=== PATIENT | female | born 1965 | race Caucasian/White ===

== ENCOUNTER 2017-11-21 06:06 | Observation (INO) ==
--- NOTE | 2017-11-21 06:16 | Emergency Department Note ---
Disposition Clinical Impression: TIA (transient ischemic attack), Troponin level elevated Disposition: Admitted As Inpatient Condition: Good General Adult HPI - General Stated complaint: Stroke like symptoms/ Hx stroke in May Time Seen by Provider: 11/21/17 06:09 - Related Data Home Medications Medication Instructions Recorded Confirmed FLUoxetine HCl [Prozac] 40 mg PO DAILY 11/21/17 11/21/17 LevETIRAcetam [Keppra] 750 mg PO BID 11/21/17 11/21/17 Rosuvastatin Calcium [Crestor] 10 mg PO HS 11/21/17 11/21/17 metFORMIN [Glucophage] 500 mg PO DAILY 11/21/17 11/21/17 Allergies Allergy/AdvReac Type Severity Reaction Status Date / Time ampicillin Allergy Rash Verified 05/08/17 11:21 Past Medical History - Past Medical History Medical history: Reports: diabetes, hypertension Psychiatric history: Reports: anxiety, depression - Social History Smoking Status: Current every day smoker Smokeless Tobacco Status: No Alcohol use: Reports: none Drug use: Reports: none Course Vital Signs Temperature 97.8 F 11/21/17 06:11 Pulse Rate 96 11/21/17 06:11 Respiratory Rate 18 11/21/17 06:11 Blood Pressure 148/102 11/21/17 06:11 O2 Sat by Pulse Oximetry 98 11/21/17 06:11 Temperature 98.0 F 11/22/17 11:38 Pulse Rate 77 11/22/17 11:38 Respiratory Rate 15 11/22/17 11:38 Blood Pressure 111/73 11/22/17 11:38 O2 Sat by Pulse Oximetry 97 11/22/17 11:38 Oxygen Delivery Oxygen Delivery Room Air Medical Decision Making - Lab Data Result diagrams: 11/21/17 06:20 11/21/17 06:20 Lab Results 11/21/17 11/21/17 11/21/17 Range/Units 06:12 06:20 06:20 WBC 10.1 (4.3-11.1) K/mcL RBC 4.54 (3.82-4.97) M/mcL Hgb 13.5 (11.5-15.4) g/dL Hct 40.8 (35.3-44.9) % MCV 89.9 (83.0-100.0) fL MCH 29.7 (28.0-33.3) pg MCHC 33.1 (31.6-35.5) g/dL RDW 12.7 (11.5-14.5) % Plt Count 287 (140-400) K/mcL MPV 10.5 (9.4-12.4) fL Immature Gran % 0.5 (0-4) % Seg Neutrophils % 70.3 % Lymphocytes % 20.1 % Monocytes % 6.8 % Eosinophils % 1.8 % Basophils % 0.5 % Neutrophils # 7.1 (1.6-8.9) K/mcL Lymphocytes # 2.0 (0.6-4.6) K/mcL Monocytes # 0.7 (0.0-1.3) K/mcL Eosinophils # 0.2 (0.0-0.6) K/mcL Basophils # 0.1 (0.0-0.2) K/mcL PT 11.6 (9.4-12.1) Seconds INR 1.0 Sodium (136-145) mEq/L Potassium (3.5-5.1) mEq/L Chloride (98-107) mEq/L Carbon Dioxide (23-29) mEq/L BUN (6-20) mg/dL Creatinine (0.60-1.20) mg/dL Est GFR ( Amer) (> 60) Est GFR (Non-Af Amer) (> 60) BUN/Creatinine Ratio (6-26) Glucose (70-105) mg/dL POC Glucose 133 H (70-99) mg/dL Calculated Osmolality (280-300) Calcium (8.6-10.3) mg/dL Total Bilirubin (0.3-1.0) mg/dL AST (13-39) Units/L ALT (7-52) Units/L Alkaline Phosphatase (34-104) Units/L Troponin I (< 0.04) ng/mL Serum Total Protein (6.4-8.9) g/dL Albumin (3.5-5.7) g/dL Globulin (2.4-3.5) g/dL Albumin/Globulin Ratio (1.1-2.2) 11/21/17 11/21/17 Range/Units 06:20 07:56 WBC (4.3-11.1) K/mcL RBC (3.82-4.97) M/mcL Hgb (11.5-15.4) g/dL Hct (35.3-44.9) % MCV (83.0-100.0) fL MCH (28.0-33.3) pg MCHC (31.6-35.5) g/dL RDW (11.5-14.5) % Plt Count (140-400) K/mcL MPV (9.4-12.4) fL Immature Gran % (0-4) % Seg Neutrophils % % Lymphocytes % % Monocytes % % Eosinophils % % Basophils % % Neutrophils # (1.6-8.9) K/mcL Lymphocytes # (0.6-4.6) K/mcL Monocytes # (0.0-1.3) K/mcL Eosinophils # (0.0-0.6) K/mcL Basophils # (0.0-0.2) K/mcL PT (9.4-12.1) Seconds INR Sodium 138 (136-145) mEq/L Potassium 4.0 (3.5-5.1) mEq/L Chloride 106 (98-107) mEq/L Carbon Dioxide 23 (23-29) mEq/L BUN 22 H (6-20) mg/dL Creatinine 0.75 (0.60-1.20) mg/dL Est GFR ( Amer) > 60 (> 60) Est GFR (Non-Af Amer) > 60 (> 60) BUN/Creatinine Ratio 29 H (6-26) Glucose 136 H (70-105) mg/dL POC Glucose (70-99) mg/dL Calculated Osmolality 291 (280-300) Calcium 9.4 (8.6-10.3) mg/dL Total Bilirubin 0.3 (0.3-1.0) mg/dL AST 18 (13-39) Units/L ALT 23 (7-52) Units/L Alkaline Phosphatase 79 (34-104) Units/L Troponin I 0.14 H* 0.20 H* (< 0.04) ng/mL Serum Total Protein 7.7 (6.4-8.9) g/dL Albumin 4.5 (3.5-5.7) g/dL Globulin 3.2 (2.4-3.5) g/dL Albumin/Globulin Ratio 1.4 (1.1-2.2) Attestation Statement - Attestation Attestation: I examined this patient and my medical decision-making was reviewed with the Resident Physician. I agree with the documented findings, disposition and treatment plan as described except to the extent set forth below. Findings consistent with dysarthria which is now improving. Symptom onset was last night before midnight. She is out of the window for any intervention and actually recently had brain surgery for hemorrhagic stroke. We will obtain advanced imaging of the brain as well as laboratory analyses and proceed with admission for medical maximization. Disposition will be pending results of advanced imaging.
[2017-11-21] MEDS ORDERED: Isovue-370 500 ML INFUS..BTL IV ONE (06:19)
--- NOTE | 2017-11-21 06:30 | Emergency Department Note ---
Disposition Clinical Impression: TIA (transient ischemic attack), Troponin level elevated Disposition: Admitted As Inpatient Condition: Fair General Adult HPI - General Chief complaint: ED Neuro Symptoms/Deficit Stated complaint: Stroke like symptoms/ Hx stroke in May Time Seen by Provider: 11/21/17 06:09 Source: patient Limitations: no limitations Nursing Notes Reviewed: Yes Vital Signs Reviewed: Yes - History of Present Illness HPI Narrative: 51 year old female with history of stroke presents with blur speech since three hours ago. Pt woke up around 3 am with blur speech. She then fell in sleep and hopped the symptoms would go away. She woke up around 5 am again. She talked with her boyfriend in the phone and found out that she still had blur speech. Pt stated she had mild chest uncomfortable in left side chest at the same time. No shortness of breath. Pt is not sure whether she had seizure. Pt reported no chest pain and mild improving blur speech when arriving at ER. Denied headache. Denied weakness of extremities. Pt reported intracranial hemorrhage with midline shift in May in [place]. She follows up with Dr. Coto. Pt is not on any blood thinner. Pt is on Levetiracetam to prevent seizure. No witnessed seizures in the past. Onset (ago): hour(s) (3) Location: head Radiation: non-radiation Pain Scale: 6 Consistency: constant - Related Data Allergies Allergy/AdvReac Type Severity Reaction Status Date / Time ampicillin Allergy Rash Verified 05/08/17 11:21 Constitutional: Denies: fever, chills, weakness, weight change Eyes: Denies: eye pain, eye discharge, vision change ENT ED: Reports: other (blur speech ). Denies: ear pain, throat pain, dental pain, hearing loss, epistaxis, congestion, dysphagia Cardiovascular: Reports: chest pain. Denies: palpitations, dyspnea on exertion , edema, syncope Respiratory: Denies: cough, dyspnea, wheezes, hemoptysis, stridor Gastrointestinal: Denies: abdominal pain, nausea, vomiting, diarrhea, constipation, hematemesis, melena, hematochezia Genitourinary: Denies: dysuria, frequency, hematuria, discharge Musculoskeletal: Denies: back pain, neck pain, arthralgia, myalgia Integumentary: Denies: rash, abrasion, lesions Neurological: Denies: headache, weakness, numbness, paresthesias, confusion, abnormal gait, vertigo Psychiatric: Denies: anxiety, depression, suicidal thoughts, homicidal thoughts , auditory hallucinations, visual hallucinations Endocrine: Denies: fatigue Hematological/Lymphatic: Denies: easy bleeding, easy bruising Allergic/Immunologic: Denies: facial swelling, urticaria Past Medical History - Past Medical History Medical history: Reports: diabetes, hypertension Psychiatric history: Reports: anxiety, depression - Social History Smoking Status: Current every day smoker Smokeless Tobacco Status: No Alcohol use: Reports: none Drug use: Reports: none Physical Exam - General Limitations: no limitations General appearance: alert, in no apparent distress - Head Head exam: atraumatic, normocephalic, normal inspection - Eye Eye exam: Present: normal appearance, PERRL, EOMI - ENT ENT exam: normal oropharynx, mucous membranes moist, other (a small lesion in right side tongue) - Neck Neck exam: Present: normal inspection, full ROM, trachea midline - Chest Chest inspection: Present: normal inspection, symmetric chest wall rise - Respiratory Respiratory exam: Present: normal lung sounds bilaterally - Cardiovascular Cardiovascular exam: Present: regular rate, normal rhythm, normal heart sounds - Abdominal Exam Abdominal exam: Present: soft, Non-Tender. Absent: tenderness, distention, guarding, rebound, rigidity - Extremities Exam Extremities exam: Present: normal inspection, full ROM. Absent: tenderness, pedal edema - Back Exam Back exam: Present: normal inspection, full ROM. Absent: tenderness - Neurological Exam Neurological exam: Present: alert, oriented X3, CN II-XII intact. Absent: motor sensory deficit - Psychiatric Psychiatric exam: Present: normal affect, normal mood - Skin Skin exam: Present: warm, dry, intact, normal color Course Vital Signs Temperature 97.8 F 11/21/17 06:11 Pulse Rate 96 11/21/17 06:11 Respiratory Rate 18 11/21/17 06:11 Blood Pressure 148/102 11/21/17 06:11 O2 Sat by Pulse Oximetry 98 11/21/17 06:11 Temperature 97.8 F 11/21/17 06:11 Pulse Rate 96 11/21/17 06:11 Respiratory Rate 18 11/21/17 06:11 Blood Pressure 148/102 11/21/17 06:11 O2 Sat by Pulse Oximetry 98 11/21/17 06:11 Oxygen Delivery Oxygen Delivery Room Air Medical Decision Making - MDM Narrative Medical decision making narrative: 51 year old female with history of intracranial hemorrhage presents with blur speech and chest pain since this morning. Pt has improved blur speech and resolved chest pain at ER. Physical exam: mild lesion in right side tongue, no other focal neurology deficit. EKG: no ST-T change. Labs: elevated troponin 0.14. Head CT: no bleeding noted. Concerning TIA, NM and questionable seizure. Pt will be admitted to hospital with cardiology and neurology consults. Dr. Hamilton saw the patient and agrees the above plan. 07:40 spoke with oncall Cardiology Dr. Tenorio. He suggested to give Aspirin, repeat Troponin. If the second troponin positive, heparin trip should be started. He will see the patient in the floor. 08:[address] Coto. He suggested to odder MRI brain. He will see the patient in the floor. 08:12 spoke with hospitalist, pt is accepted. - Lab Data Lab results reviewed: Yes I reviewed the patient's lab results. Result diagrams: 11/21/17 06:20 11/21/17 06:20 Lab Results 11/21/17 11/21/17 11/21/17 Range/Units 06:12 06:20 06:20 WBC 10.1 (4.3-11.1) K/mcL RBC 4.54 (3.82-4.97) M/mcL Hgb 13.5 (11.5-15.4) g/dL Hct 40.8 (35.3-44.9) % MCV 89.9 (83.0-100.0) fL MCH 29.7 (28.0-33.3) pg MCHC 33.1 (31.6-35.5) g/dL RDW 12.7 (11.5-14.5) % Plt Count 287 (140-400) K/mcL MPV 10.5 (9.4-12.4) fL Immature Gran % 0.5 (0-4) % Seg Neutrophils % 70.3 % Lymphocytes % 20.1 % Monocytes % 6.8 % Eosinophils % 1.8 % Basophils % 0.5 % Neutrophils # 7.1 (1.6-8.9) K/mcL Lymphocytes # 2.0 (0.6-4.6) K/mcL Monocytes # 0.7 (0.0-1.3) K/mcL Eosinophils # 0.2 (0.0-0.6) K/mcL Basophils # 0.1 (0.0-0.2) K/mcL PT 11.6 (9.4-12.1) Seconds INR 1.0 Sodium (136-145) mEq/L Potassium (3.5-5.1) mEq/L Chloride (98-107) mEq/L Carbon Dioxide (23-29) mEq/L BUN (6-20) mg/dL Creatinine (0.60-1.20) mg/dL Est GFR ( Amer) (> 60) Est GFR (Non-Af Amer) (> 60) BUN/Creatinine Ratio (6-26) Glucose (70-105) mg/dL POC Glucose 133 H (70-99) mg/dL Calculated Osmolality (280-300) Calcium (8.6-10.3) mg/dL Total Bilirubin (0.3-1.0) mg/dL AST (13-39) Units/L ALT (7-52) Units/L Alkaline Phosphatase (34-104) Units/L Troponin I (< 0.04) ng/mL Serum Total Protein (6.4-8.9) g/dL Albumin (3.5-5.7) g/dL Globulin (2.4-3.5) g/dL Albumin/Globulin Ratio (1.1-2.2) 11/21/17 Range/Units 06:20 WBC (4.3-11.1) K/mcL RBC (3.82-4.97) M/mcL Hgb (11.5-15.4) g/dL Hct (35.3-44.9) % MCV (83.0-100.0) fL MCH (28.0-33.3) pg MCHC (31.6-35.5) g/dL RDW (11.5-14.5) % Plt Count (140-400) K/mcL MPV (9.4-12.4) fL Immature Gran % (0-4) % Seg Neutrophils % % Lymphocytes % % Monocytes % % Eosinophils % % Basophils % % Neutrophils # (1.6-8.9) K/mcL Lymphocytes # (0.6-4.6) K/mcL Monocytes # (0.0-1.3) K/mcL Eosinophils # (0.0-0.6) K/mcL Basophils # (0.0-0.2) K/mcL PT (9.4-12.1) Seconds INR Sodium 138 (136-145) mEq/L Potassium 4.0 (3.5-5.1) mEq/L Chloride 106 (98-107) mEq/L Carbon Dioxide 23 (23-29) mEq/L BUN 22 H (6-20) mg/dL Creatinine 0.75 (0.60-1.20) mg/dL Est GFR ( Amer) > 60 (> 60) Est GFR (Non-Af Amer) > 60 (> 60) BUN/Creatinine Ratio 29 H (6-26) Glucose 136 H (70-105) mg/dL POC Glucose (70-99) mg/dL Calculated Osmolality 291 (280-300) Calcium 9.4 (8.6-10.3) mg/dL Total Bilirubin 0.3 (0.3-1.0) mg/dL AST 18 (13-39) Units/L ALT 23 (7-52) Units/L Alkaline Phosphatase 79 (34-104) Units/L Troponin I 0.14 H* (< 0.04) ng/mL Serum Total Protein 7.7 (6.4-8.9) g/dL Albumin 4.5 (3.5-5.7) g/dL Globulin 3.2 (2.4-3.5) g/dL Albumin/Globulin Ratio 1.4 (1.1-2.2) - Radiology Data Radiology results reviewed: Yes I reviewed the patient's radiology results. - EKG Data EKG #1 EKG attestation: Yes I reviewed and interpreted this EKG. EKG results narrative: no st-t change EKG shows normal: sinus rhythm Rate: normal
[2017-11-21 06:34] LABS: Basophils # 0.1 K/mcL (0.0-0.2); Basophils % 0.5 %; Eosinophils # 0.2 K/mcL (0.0-0.6); Eosinophils % 1.8 %; Hematocrit 40.8 % (35.3-44.9); Hemoglobin 13.5 g/dL (11.5-15.4); Immature Granulocytes % 0.5 % (0-4); Lymphocytes % 20.1 %; Mean Corpuscular HGB Conc 33.1 g/dL (31.6-35.5); Mean Corpuscular Hemoglobin 29.7 pg (28.0-33.3); Mean Corpuscular Volume 89.9 fL (83.0-100.0); Mean Platelet Volume 10.5 fL (9.4-12.4); Monocytes # 0.7 K/mcL (0.0-1.3); Monocytes % 6.8 %; Neutrophils # 7.1 K/mcL (1.6-8.9); Platelet Count 287 K/mcL (140-400); Red Blood Count 4.54 M/mcL (3.82-4.97); Red Cell Distribution Width 12.7 % (11.5-14.5); Segmented Neutrophils % 70.3 %
[2017-11-21 06:40] LABS: Prothrombin Time 11.6 Seconds (9.4-12.1)
[2017-11-21 06:53] LABS: Alanine Aminotransferase 23 Units/L (7-52); Albumin 4.5 g/dL (3.5-5.7); Albumin/Globulin Ratio 1.4 (1.1-2.2); Alkaline Phosphatase 79 Units/L (34-104); Aspartate Amino Transferase 18 Units/L (13-39); BUN/Creatinine Ratio 29 (6-26); Bilirubin,Total 0.3 mg/dL (0.3-1.0); Blood Urea Nitrogen 22 mg/dL (6-20); Calcium 9.4 mg/dL (8.6-10.3); Carbon Dioxide 23 mEq/L (23-29); Chloride 106 mEq/L (98-107); Globulin 3.2 g/dL (2.4-3.5); Glucose 136 mg/dL (70-105); Osmolality,Calculated 291 (280-300); Sodium 138 mEq/L (136-145); Total Protein 7.7 g/dL (6.4-8.9); eGFR For Non-African Americans > 60 (> 60)
[2017-11-21 07:09] LABS: Troponin I 0.14 ng/mL (< 0.04)
[2017-11-21] MEDS ORDERED: Aspirin 325 MG TABLET PO ONE (07:45)
--- NOTE | 2017-11-21 09:27 | Internal Med History&Physical ---
Date of Encounter: 11/21/17 Time of Encounter: 09:25 Internal Medicine - H&P: HPI Chief complaint: blurry speech and chest pain Admitted From: Home Plans for Post Hospital Care: Home History of present illness: Ms. Vickers is a 51 year old female with past medical history of borderline diabetes, sleep apnea on CPAP, intracranial bleeding in May status post surgery came in with complain of blurry speech and chest pain. Patient when woken up by phone call around 3:00 this morning noticed that her speech was slurry and she difficulty speaking. She went to sleep thinking resolve on its own. She woke up around 5:00 feeling weak throughout her body. Her stay blurry speech was resolved however she started having some chest discomfort about 2 x 10 in intensity with pressure-like symptoms in the center of her chest. Nonradiating and nonexertional. Patient came to be around 6:30. She denied any previous history of chest pain. Denies any previous cardiac problems. Denies nausea, vomiting, headache, palpitation or lightheadedness. Denies any back pain abdominal pain bowel or urinary complaints. She was noted to have bruised tongue and some soreness in the ER patient concerns of seizure which date she did not recall. She is on Keppra for seizure prevention since her intracranial hemorrhage. She has not had any seizure in past. Patient CT head was negative. Was noted to have elevated troponin and unremarkable EKG. Patient was admitted for chest pain possible stroke or seizure. Past Med Surg Social Fam HX - Past Medical History Medical history: diabetes, hypertension Psychiatric history: anxiety, depression - Past Surgical History Additional surgical history: brain surgery - Social History Smoking Status: Current every day smoker Smokeless Tobacco Status: No Alcohol use: none Drug use: none Internal Medicine - H&P: Meds FLUoxetine HCl [Prozac] 40 mg PO DAILY 11/21/17 [History] LevETIRAcetam [Keppra] 750 mg PO BID 11/21/17 [History] Rosuvastatin Calcium [Crestor] 10 mg PO HS 11/21/17 [History] metFORMIN [Glucophage] 500 mg PO DAILY 11/21/17 [History] 3 Allergy/AdvReac Type Severity Reaction Status Date / Time ampicillin Allergy Rash Verified 05/08/17 11:21 All Systems PM: A 10-system review of systems was performed and is negative for pertinent findings except as documented above in the HPI. - Constitutional Vitals: Temp Pulse Resp BP Pulse Ox 97.8 F 96 18 148/102 98 11/21/17 06:11 11/21/17 06:11 11/21/17 06:11 11/21/17 06:11 11/21/17 06:11 General appearance: Present: A&O X 3, no acute distress Exam: Constitutional: Vitals as noted. Conversant. No Apparent Distress. Well grommed. Obese No obvious deformities. Eyes exam: Sclera white, conjunctiva clear, no lid lag, PEARLA. ENT exam: Grossly normal hearing. Nasophargeal and Oropharyngeal exam unremarkable. Moist mucus membranes. No JVD, carotid bruit, no cervical lymphadenopathy. no thyromegaly or mass. Respiratory exam: Clear to auscultation bilaterally. No accessory muscle use, rales, rhonchi or wheezes Cardiovascular exam: RRR, +S1, +S2. no murmur, gallop, rubs. No chest wall tenderness GI/Abdominal exam: Soft, Non-tender, Non-distended, normal bowel sounds, soft, no peritoneal signs. no orgenomegaly or mass appreciated. no hernia. Musculoskeletal exam: full ROM, no atrophy or deformity noted. no edema or cynosis, warm, pulses palpable and symmetrical in UE/LE. no calf tenderness. Neurological exam: AO X3, CN II-XII grossly intact, grossly normal motor and sensory exam. Normal muscle tone and reflexes. no focal deficits. no pronater drift, facial droop, speech deficit. Skin exam: No skin rash, lesions or ulcers noted. no purpura or ecchymosis. Pych: Good insight and judgment. Intact memory. AOx3. Mood and affect appropriate. Internal Med - H&P Results - Labs CBC & Chem 7: 11/21/17 06:20 11/21/17 06:20 - Assessment and plan (1) Troponin level elevated Current Visit: Yes Status: Acute Assessment and plan: Chest pain and elevated troponin - Follow up troponin elevated from 0.14 to 0.21. Currently chest pain-free. - We will start patient on heparin drip for NSTEMI. Cleared by neurology to start heparin. - Cardiology following. Recommendation appreciated (2) TIA (transient ischemic attack) Current Visit: Yes Status: Acute Assessment and plan: Symptoms of blurry speech lasted for less than 2 hours - CT unremarkable. MRI did not show any acute stroke. - Possibility of seizures given tongue bite. We will continue home Keppra - Neurology following. Recommendation appreciated. (3) Depression Current Visit: Yes Status: Acute Assessment and plan: - Continue home fluoxetine Qualifiers: Qualified Code(s): F32.9 - Major depressive disorder, single episode, unspecified (4) Diabetes Current Visit: Yes Status: Acute Assessment and plan: - Hold home metformin for now. Continue Accu-Cheks. Qualifiers: Qualified Code(s): E11.9 - Type 2 diabetes mellitus without complications - Time Spent With Patient Total time spent is greater than 50% in coordination of care (as documented) at patient's floor/unit and/or counseling patient:
[2017-11-21] MEDS ORDERED: *HR* Heparin 5,000 UNIT/ML VIAL IVP PRN ×2 (10:12)
[2017-11-21] MEDS ORDERED: *HR* Heparin 5,000 UNIT/ML VIAL IVP ONE (10:12)
[2017-11-21] MEDS ORDERED: Heparin 25,000 UNIT/500 ML D5W 25,000 UNIT/500 ML BAG IVC SCH (10:15)
--- NOTE | 2017-11-21 12:31 | Cardiology Consult Note ---
<Aaron Garcias - Last Filed: 11/21/17 12:57> Date of Encounter: 11/21/17 Time of Encounter: 12:30 Assessment and Plan (1) TIA (transient ischemic attack) Current Visit: Yes Status: Acute Per Cardiology: Suspected TIA. Neurology c/s pending. Head CT and MRI results noted. Patient taking antiseizure medication and missed a dose recently. Per patient, reports neurology indicated suspicion for seizure. Currently no residual weakness and back to normal state of health. (2) Troponin level elevated Current Visit: Yes Status: Acute Per Cardiology: Atypical chest pain that occurred at rest and setting of suspected seizure-like activity/possible TIA. Reports negative stress test about 2 years ago at outside facility. Troponins flat and a dynamic 0.14, 0.21, 0.20 and setting of suspected TIA. Currently chest pain-free. Will check echo. On statin. Will not proceed with heparin drip at this time. Suspect type to demand ischemia, no cardiac rehabilitation consult warranted. Recommend outpatient follow-up and consideration of further ischemic evaluation in outpatient setting once outside window of acute event. Anticipate we will sign off assuming echo cardiogram shows no significant findings. Discussed and reviewed with Dr. Tenorio. Discussion w patient/family: The assessment and plan as outlined above was discussed with the patient and/or family members who expressed understanding and agreement. All questions were answered. Thank you for involving us in the care of your patient. Please call with any questions. History of Present Illness Consult date: 11/21/17 Requesting physician: Gracy Alvarez Consult reason: Elevated Trop Chief complaint: Slurred speech History of present illness: Ms. Vickers is a 51 year old female with a relevant past medical history of hypertension, DM 2, anxiety, LILIANE, history of CVA/intracranial hemorrhage. Cardiology consult for chest pain and mild troponin elevation in setting of slurred speech rule out CVA/seizure. Patient reports May 2017 intracranial hemorrhage/CVA with initial left-sided residual weakness which is now recovered with physical therapy. She reports stress test about 2 years ago at outside facility and no history of CAD. She reports she awakened his morning with facial numbness and slurred speech with difficulty with fine dexterity. She reports she was afraid she was having another stroke and noticed midsternal chest heaviness that lasted for a few minutes and subsided. She reports she fell back asleep. Prior to this event she denied any chest pain symptoms and is not expressing any chest pain with exertional activities. She denies any fatigue or dyspnea on exertion. Denies any active bleeding or blood loss. Reports since CVA has been taking antiseizure medication and did miss a dose a few days ago. She reports told by neurology this morning they believe she expresses seizure last night. Patient did notice soreness to tongue with bruising. Past Med Surg Social Fam HX - Past Medical History Attestation: Yes The following information was validated with the patient. Source: patient, old records reviewed Medical history: diabetes, hypertension Psychiatric history: anxiety, depression - Past Surgical History Additional surgical history: brain surgery - Social History Smoking Status: Current every day smoker Smokeless Tobacco Status: No Alcohol use: none Drug use: none Medications and Allergies FLUoxetine HCl [Prozac] 40 mg PO DAILY 11/21/17 [History] LevETIRAcetam [Keppra] 750 mg PO BID 11/21/17 [History] Rosuvastatin Calcium [Crestor] 10 mg PO HS 11/21/17 [History] metFORMIN [Glucophage] 500 mg PO DAILY 11/21/17 [History] 3 Allergy/AdvReac Type Severity Reaction Status Date / Time ampicillin Allergy Rash Verified 05/08/17 11:21 All Systems Review: The remainder of the systems were reviewed and are negative - EENT Nose, mouth and throat: other (tonugue ecchymosis, laceration) - Cardiovascular Cardiovascular: as per HPI, chest pain at rest - Neurological Neurological: other (slurred speech) Physical Examination Vital Signs, Last 4 Hours Temp Pulse Resp BP Pulse Ox 11/21/17 11:25 97.7 F 70 15 119/78 98 11/21/17 09:35 97.7 F 72 15 118/73 98 General: Conversant, No Apparent Distress HEENT: Atraumatic, Normocephaly, Mucus Membranes Moist, Other (ecchymosis to tongue) Neck: No JVD, Normal carotid pulses Cardiac: Reg Rate and Rhythm, Normal S1 and S2, No Murmur Lungs: Normal Breath Sounds, No Wheeze, Rales, Rhonchi Neuro: Alert and responsive, No focal deficits noted Abdomen: Soft, Non-Tender Skin: No rashes noted on visualized skin Musculoskeletal: No Chest Wall Tenderness Extremities: No Clubbing, No Cyanosis, No Edema, Normal Pulses Results 11/21/17 06:20 11/21/17 06:20 Lab Results Laboratory Tests 11/21/17 11/21/17 11/21/17 06:20 06:20 06:20 Hgb 13.5 Hct 40.8 INR 1.0 Creatinine 0.75 Est GFR (Non-Af Amer) > 60 Troponin I 0.14 H* 11/21/17 11/21/17 07:56 09:27 Hgb Hct INR Creatinine Est GFR (Non-Af Amer) Troponin I 0.20 H* 0.21 H* ITS Impressions Angiography CT 11/21/17 06:19 IMPRESSION: 1. Right frontal lobe encephalomalacia subjacent to the craniotomy flap is presumed postsurgical. Otherwise, no acute intracranial abnormality. 2. Unremarkable CTA of the head. D/ / 11/21/2017 08:53:35 Kike Rodriguez MD / fide Interpreting Provider: Kike Rodriguez MD Chest X-Ray 11/21/17 07:59 IMPRESSION: No significant findings in the chest. D/ / Leandro Asher MD / Leandro Asher MD Interpreting Provider: Leandro Asher MD Brain MRI 11/21/17 08:05 IMPRESSION: 1. No evidence of acute infarction. 2. Postoperative changes in the right frontal lobe with encephalomalacia as well as chronic blood products in the surgical cavity. No mass effect or midline shift. 3. Sequela of minimal chronic microvascular ischemic changes. D/ / 11/21/2017 09:33:47 Kike Rodriguez MD / fide Interpreting Provider: Kike Rodriguez MD Active Medications Heparin Sodium (Porcine) (Heparin) 7,700 unit 70 unit/kg (7700 unit) IVP Q6HR PRN PRN Reason: SEE COMMENTS Stop: 05/23/18 10:13 Heparin Sodium (Porcine) (Heparin) 3,900 unit 35 unit/kg (3900 unit) IVP Q6H PRN PRN Reason: SEE COMMENTS Stop: 05/23/18 10:13 Heparin Sodium/Dextrose (Heparin 25,000 Unit/500 Ml D5w) 25,000 unit in 500 mls @ 30.91 mls/hr IVC .[id number] CAREY; 14 UNIT/KG/HR PRN Reason: Protocol Stop: 05/23/18 10:16 Levetiracetam (Keppra) 500 mg PO Q12HR CAREY Stop: 05/23/18 18:01 Rosuvastatin Calcium (Crestor) 10 mg PO HS CAREY Stop: 05/23/18 21:01 - Imaging and Cardiology Echo: pending - EKG Interpretation EKG results cardiology: personally reviewed, normal ECG, sinus rhythm, no diagnostic ischemia, other (Telemetry reviewed with average heart rate 72 past 12 hours, sinus rhythm with no significant events or atrial fibrillation noted) Consult Discharge Plan - Plan Referrals: Aurora Pelaez, MANAGER BAKERY [Primary Care Provider] - <Umberto Tenorio A - Last Filed: 11/21/17 17:06> Date of Encounter: 11/21/17 - Attending Attestation I have interviewed and examined the patient [id number] and agree with the documentation and plan of care as outlined above. Assessment and Plan Discussion w patient/family: The assessment and plan as outlined above was discussed with the patient and/or family members who expressed understanding and agreement. All questions were answered. Thank you for involving us in the care of your patient. Please call with any questions. History of Present Illness History of present illness: Ms. Vickers is a 51 year old female All Systems Review: The remainder of the systems were reviewed and are negative Physical Examination Vital Signs, Last 4 Hours Temp Pulse Resp BP Pulse Ox 11/21/17 15:17 97.7 F 78 15 121/66 98 Results 11/21/17 06:20 11/21/17 06:20 Lab Results 11/21/17 09:27 Troponin I 0.21 H*
--- NOTE | 2017-11-21 14:16 | Neurology - Consult Note ---
Date of Encounter: 11/21/17 Time of Encounter: 11:00 Assessment and Plan (1) Slurred speech Current Visit: Yes Status: Acute So this 51 year old woman with PMH significant for recent (05/2017) cerebral hemorrhage, HTN, DM, LILIANE, obesity who developed acute onset of slurred speech and chest discomforts, without focal weakness, no headaches, resolved within few hours in duration. MRI of brain showed focal encephalomalacia involving the right frontal and parietal region, result from history of cerebral hemorrhage. This is chronic in nature and no evidence of acute bleed on imaging studies. Clinically, her symptoms totally resolved. She has had full stroke work up including CTA of neck and head, DSA during 05/2017. therefore no repeat stroke work up appears necessary at this time. The cause of her previous cerebral hemorrhage, reportedly involve the frontal and parietal lobe, consistent with lobar hemorrhage, this can be caused by HTN, or amyloid anigopathy. She is a young patient with no history of amyloid angiopathy. She had elevated BP at the time of onset of symptoms therefore likely the cause of her cerebral hemorrhage was likely hypertensive. Therefore, i would not consider her history of cerebral hemorrhage an absolute contraindication for anticoagulation therapy. I agree with heparin drip as suggested by floral associate and obviously close clinical monitoring for signs of cerebral hemorrhage needed. Please continue medical and supportive. Total time spend on this case, is approximately 60 minutes. History of Present Illness Chief complaint: slurred speech and chest pain HPI: Ms. Vickers is a 51 year old female with PMH significant for HTN, history of hemorrhagic stroke, DM, obesity, LILIANE who developed acute onset of slurred speech and chest discomforts. Patient woke up this AM at 3:00am experiencing slurred speech and she went back to sleep and woke up again at 5am and still has slurred speech and at the same time she felt chest discomforts. Therefore she went to ER. Initial CT of head showed no acute intracranial abnormality. She has chest pain and her traponin level was elevated. By the time she was evaluated in the ER her slurred speech improved and resolved back to normal baseline. However, she was found to have tongue biting tiffani on the right frontal part of her tongue and she sleeps alone and no one witnessed any seizures. She has no urinary incontinence. Patient has history of cerebral hemorrhage, s/p craniotomy for hematoma evacuation. This occurred during May/2017. Per medical records, on 06/09/2017 the patient woke up during sleep, with severe headache and right sided weakness. CT of head showed presence of large cerebral hemorrhage at right frontal and parietal region with subdural and subarachnoid component. She was treated at outside hospital and initially observed in the ICU. She was started Keppra 750mg bid for seizure prophylaxis. Subsequently she was found to have worsening of size of cerebral hemorrhage and mass effects therefore craniotomy was performed to evacuate the hematoma. Etiology of the cerebral hemorrhage was unknown but she states that at the time of onset of her symptoms her blood pressure was significantly elevated. No cerebral aneurysm per CTA of neck and brain. No venous thrombosis via DSA imaging per medical records. Patient underwent uneventful craniotomy and she was eventually discharged to rehab at [facility] and her left sided weakness resolved. At the time of this interview, MRI of brain showed no acute intracranial abnormality. She is wide awake and reports no significant discomforts. No headaches. no more slurred speech. Patient needs heparin drip due to elevated troponin level and i discussed the case with medical team and agreed with the plan to anticoagulate in the form of heparin drip. Patient mentions that she did not take her keppra on the day prior onset of her symptoms. Therefore she may have had a seizure and her keppra is restarted. Past Med Surg Social Fam HX - Past Medical History Medical history: diabetes, hypertension Psychiatric history: anxiety, depression - Past Surgical History Additional surgical history: brain surgery - Social History Smoking Status: Current every day smoker Smokeless Tobacco Status: No Alcohol use: none Drug use: none - Family History Father Living Status: Age at : 64 Cause of : CHF Hx Family Cardiac Disorders: Yes Hx Family Respiratory Disorders: No Hx Family Cancer: Yes Hx Family Endocrine Disorder: No Hx Family Neurologic Disorders: Yes Hx Family Medical Disorders: Yes Medications and Allergies FLUoxetine HCl [Prozac] 40 mg PO DAILY 11/21/17 [History] LevETIRAcetam [Keppra] 750 mg PO BID 11/21/17 [History] Rosuvastatin Calcium [Crestor] 10 mg PO HS 11/21/17 [History] metFORMIN [Glucophage] 500 mg PO DAILY 11/21/17 [History] 3 Allergy/AdvReac Type Severity Reaction Status Date / Time ampicillin Allergy Rash Verified 05/08/17 11:21 All Systems: The remainder of the systems were reviewed and are negative Physical Examination - Vital Signs Vital Signs: Initial Vital Signs Temp Pulse Resp BP Pulse Ox 97.8 F 96 18 148/102 98 11/21/17 06:11 11/21/17 06:11 11/21/17 06:11 11/21/17 06:11 11/21/17 06:11 - Constitutional General appearance: comfortable - Neurologic Detailed motor examination: full strength in all major muscle groups Motor examination - right side: 5/5: deltoids, biceps, triceps, wrist flexion, wrist extension, groundhand, hip flexors, tibialis Anterior, quadriceps, toe extension (EHL), plantarflexion Motor examination - left side: 5/5: deltoids, biceps, triceps, wrist flexion, wrist extension, hip flexors, groundhand, quadriceps, tibialis Anterior, toe extension (EHL), plantarflexion Detailed sensory examination: intact Posture: other (None) Reflex and gait examination: intact Reflexes: Biceps: 1+, Triceps: 1+, Brachioradialis: 1+, Patella: 1+, Achilles: 1 + Mental Status Examination: awake, alert, oriented to person, oriented to place, oriented to time, follows commands appropriately, answers questions appropriately, no agnosia, no aphasia, no aproxia Cranial nerve examination: PERRL, EOMI, visual marion intact, corneal reflexes brisk symmetrically, sensory to face intact, mastication intact, no facial asymmetry is present, no dysarthria, hearing is intact symmetrically, soft palate elevates bilaterally upon phonation, gag reflex intact, flexes SCM and trapezius muscles symmetrically with full power, tongue protrudes midline, no atrophy or facial fasiculations present Cerebellar examination: no dysmetria, performs finger to nose and heel to holliday symmetrically without ataxia, no gait ataxia, no truncal ataxia, no difficulty with rapid alternating movements Results - Laboratory Findings CBC and BMP: 11/21/17 06:20 11/21/17 06:20 Abnormal lab findings: Abnormal lab results Heparin Anti-Xa, Unfract 0.06 IU/mL (0.30-0.70) L 11/21/17 11:30 BUN 22 mg/dL (6-20) H 11/21/17 06:20 BUN/Creatinine Ratio 29 (6-26) H 11/21/17 06:20 Glucose 136 mg/dL (70-105) H 11/21/17 06:20 POC Glucose 133 mg/dL (70-99) H 11/21/17 06:12 Troponin I 0.21 ng/mL (< 0.04) H* 11/21/17 09:27 - Diagnostic Findings Additional findings: EXAMINATION: MRI OF THE BRAIN WITHOUT CONTRAST, 11/21/2017 9:14 am TECHNIQUE: Multiplanar multisequence MRI of the brain was performed without the administration of intravenous contrast. COMPARISON: CTA head 11/21/2017 HISTORY: ORDERING SYSTEM PROVIDED HISTORY: TIA CV with craniotomy May 2017. Slurred speech. Facial droop on the right side. FINDINGS: INTRACRANIAL STRUCTURES/VENTRICLES: No convincing evidence for diffusion restriction to suggest acute infarction. Postsurgical changes are seen in the right frontal lobe with postoperative encephalomalacia. There is some magnetic susceptibility artifact in keeping with chronic blood products. No significant mass effect or midline shift. Foci of periventricular and subcortical white matter T2/FLAIR hyperintense signal. The ventricles and sulci are normal in size and configuration. The sellar/suprasellar regions appear unremarkable. The normal signal voids within the major intracranial vessels appear maintained. ORBITS: The visualized portion of the orbits demonstrate no acute abnormality. SINUSES: The visualized paranasal sinuses and mastoid air cells are well aerated. BONES/SOFT TISSUES: The bone marrow signal intensity appears normal. The soft tissues demonstrate no acute abnormality. MR/MR head/brain wo con IMPRESSION: 1. No evidence of acute infarction. 2. Postoperative changes in the right frontal lobe with encephalomalacia as well as chronic blood products in the surgical cavity. No mass effect or midline shift. 3. Sequela of minimal chronic microvascular ischemic changes. D/ / 11/21/2017 09:33:47 Kike Rodriguez MD / fide Interpreting Provider: Kike Rodriguez MD EXAMINATION: CTA OF THE HEAD WITHOUT AND WITH CONTRAST, 11/21/2017 7:19 am TECHNIQUE: CTA of the head/brain was performed without and with the administration of intravenous contrast. Multiplanar reformatted images are provided for review. MIP images are provided for review. Dose modulation, iterative reconstruction, and/or weight based adjustment of the mA/kV was utilized to reduce the radiation dose to as low as reasonably achievable. COMPARISON: None HISTORY: ORDERING SYSTEM PROVIDED HISTORY: blur speech 75 mL of Isovue 370 FINDINGS: CT HEAD: BRAIN/VENTRICLES: Right frontal lobe encephalomalacia subjacent to the right frontal craniotomy flap. No acute intracranial hemorrhage. No mass effect or midline shift. No hydrocephalus. The webb-white differentiation is maintained. The basal cisterns are patent. No abnormal extra-axial fluid collection. ORBITS: The visualized portion of the orbits demonstrate no acute abnormality. SINUSES: The visualized paranasal sinuses and mastoid air cells demonstrate no acute abnormality. SOFT TISSUES/SKULL: No acute abnormality of the visualized skull or soft tissues. CTA HEAD: ANTERIOR CIRCULATION: The internal carotid arteries are normal in course and caliber without focal stenosis. The anterior cerebral and middle cerebral arteries demonstrate no focal stenosis. The anterior communicating artery is present. POSTERIOR CIRCULATION: The posterior cerebral arteries demonstrate no focal stenosis. The vertebral and basilar arteries appear unremarkable. CT/CT angio head wo/w con IMPRESSION: 1. Right frontal lobe encephalomalacia subjacent to the craniotomy flap is presumed postsurgical. Otherwise, no acute intracranial abnormality. 2. Unremarkable CTA of the head. D/ / 11/21/2017 08:53:35 Kike Rodriguez MD / fide Interpreting Provider: Kike Rodriguez MD Consult Discharge Plan - Plan Referrals: Aurora Pelaez, POSTDOCTORAL SCHOLAR [Primary Care Provider] -
[2017-11-21] MEDS ORDERED: levETIRAcetam 250 MG TABLET PO SCH (18:00)
[2017-11-21] MEDS ORDERED: ROSUVASTATIN CALCIUM 10 MG PO SCH (21:00)
[2017-11-21] MEDS: Acetaminophen 325 MG TABLET PO PRN (21:23)
--- NOTE | 2017-11-22 08:42 | Cardiology Progress Note ---
Date of Encounter: 11/22/17 Time of Encounter: 08:40 Assessment and Plan (1) TIA (transient ischemic attack) Current Visit: Yes Status: Acute Per Cardiology: Suspected TIA. Neurology following. Head CT and MRI results noted. Patient taking antiseizure medication and missed a dose recently. Per patient, reports neurology indicated suspicion for seizure. Currently no residual weakness and back to normal state of health. (2) Troponin level elevated Current Visit: Yes Status: Acute Per Cardiology: Atypical chest pain that occurred at rest and setting of suspected seizure-like activity/possible TIA. Reports negative stress test about 2 years ago at outside facility. Troponins flat and a dynamic 0.14, 0.21, 0.20 and setting of suspected TIA. Currently chest pain-free. Echo pending. On statin. Cardiology will sign off, reconsult as needed assuming echo has no significant findings. Follow-up in outpatient setting arranged. All questions answered. Discussion w patient/family: The assessment and plan as outlined above was discussed with the patient and/or family members who expressed understanding and agreement. All questions were answered. Thank you for involving us in the care of your patient. Please call with any questions. Subjective Principal diagnosis: Elevated Trop Interval history: Patient reports headache this morning. Denies any slurred speech or strokelike symptoms. She denies any further chest pain symptoms. Objective Vital Signs, Last 4 Hours Temp Pulse Resp BP Pulse Ox 11/22/17 06:19 98.0 F 68 15 103/63 93 11/22/17 04:50 98.0 F 67 16 102/61 97 General: Conversant, No Apparent Distress HEENT: Atraumatic, Normocephaly, Mucus Membranes Moist Neck: No JVD, Normal carotid pulses Cardiac: Reg Rate and Rhythm, Normal S1 and S2, No Murmur Lungs: Normal Breath Sounds, No Wheeze, Rales, Rhonchi Neuro: Alert and responsive, No focal deficits noted Abdomen: Soft, Non-Tender Skin: No rashes noted on visualized skin Musculoskeletal: No Chest Wall Tenderness Extremities: No Clubbing, No Cyanosis, No Edema, Normal Pulses Results 11/21/17 06:20 11/21/17 06:20 Lab Results Laboratory Tests 11/21/17 11/21/17 11/21/17 06:20 07:56 09:27 Troponin I 0.14 H* 0.20 H* 0.21 H* Impressions Angiography CT 11/21/17 06:19 IMPRESSION: 1. Right frontal lobe encephalomalacia subjacent to the craniotomy flap is presumed postsurgical. Otherwise, no acute intracranial abnormality. 2. Unremarkable CTA of the head. D/ / 11/21/2017 08:53:35 Kike Rodriguez MD / fide Interpreting Provider: Kike Rodriguez MD Brain MRI 11/21/17 08:05 IMPRESSION: 1. No evidence of acute infarction. 2. Postoperative changes in the right frontal lobe with encephalomalacia as well as chronic blood products in the surgical cavity. No mass effect or midline shift. 3. Sequela of minimal chronic microvascular ischemic changes. D/ / 11/21/2017 09:33:47 Kike Rodriguez MD / fide Interpreting Provider: Kike Rodriguez MD Active Medications Acetaminophen (Tylenol) 650 mg PO Q6HR PRN PRN Reason: Fever Stop: 05/23/18 18:55 Last Admin: 11/21/17 21:23 Dose: 650 mg Fluoxetine HCl (Prozac) 40 mg PO DAILY CAREY Stop: 05/24/18 09:01 Levetiracetam (Keppra) 750 mg PO BID CAREY Stop: 05/24/18 09:01 Rosuvastatin Calcium (Crestor) 10 mg PO HS CAREY Stop: 05/23/18 21:01 Last Admin: 11/21/17 21:24 Dose: 10 mg - Imaging and Cardiology Echo: pending Consult Discharge Plan - Plan Referrals: Aurora Pelaez, SHOVEL HANDLE ASSEMBLER [Primary Care Provider] -
[2017-11-22] MEDS: Acetaminophen 325 MG TABLET PO PRN (08:49)
[2017-11-22] MEDS ORDERED: levETIRAcetam 250 MG TABLET PO SCH (09:00)
[2017-11-22] MEDS ORDERED: FLUoxetine 20 MG CAPSULE PO SCH (09:00)
[2017-11-22 11:39] VITALS: BP 111/73
--- NOTE | 2017-11-22 12:02 | Discharge Summary ---
- NOTES TO OUTPATIENT PROVIDER Notes to Outpatient Provider: Follow-up within neurology within a week, hospital discharge. Cardiology follow-up as an outpatient within 2-3 weeks. Orders not resulted at time of discharge: Pending orders 11/21/17 12:35 EV echocardiogram Routine Date of Encounter: 11/22/17 Time of Encounter: 11:58 - Discharge Diagnosis (1) TIA (transient ischemic attack) Priority: Primary Status: Resolved (2) Troponin level elevated Priority: Secondary Status: Resolved (3) Diabetes Priority: Secondary Status: Chronic Qualifiers: Qualified Code(s): E11.9 - Type 2 diabetes mellitus without complications (4) Depression Priority: Secondary Status: Chronic Qualifiers: Depression Type: unspecified Qualified Code(s): F32.9 - Major depressive disorder, single episode, unspecified Hospital course: Ms. Vickers is a 51 year old female past medical history of borderline diabetes , sleep apnea on CPAP, intracranial bleeding in May status post surgery 2017. Patient presented to the emergency room due to slow to speech, difficulty finding words associated with tongue bite. Patient workup for a possible CVA, which was rule out with an MRI of the brain. On this presentation patient had elevated troponin. Cardiology consulted, recommended against inpatient ischemic work and recommended outpatient follow up. Patient acute symptoms have resolved. Patient is hemodynamically clear to be discharged. - Time Spent with Patient Total time spent providing and/or coordinating discharge services: Less than 30 minutes - Discharge Medications Home Medications: FLUoxetine HCl [Prozac] 40 mg PO DAILY 11/21/17 [History] LevETIRAcetam [Keppra] 750 mg PO BID 11/21/17 [History] Rosuvastatin Calcium [Crestor] 10 mg PO HS 11/21/17 [History] metFORMIN [Glucophage] 500 mg PO DAILY 11/21/17 [History] Allergies/Adverse Reactions: 3 Allergy/AdvReac Type Severity Reaction Status Date / Time ampicillin Allergy Rash Verified 05/08/17 11:21 Date of admission: 11/21/17 08:24 Primary care physician: Aurora Pelaez CNP - Constitutional Vitals: Temp Pulse Resp BP Pulse Ox 98.0 F 77 15 111/73 97 11/22/17 11:38 11/22/17 11:38 11/22/17 11:38 11/22/17 11:38 11/22/17 11:38 General appearance: Present: A&O X 3, no acute distress Exam: General: Patient is alert, oriented, no acute distress. Head: atraumatic, normocephalic, Eye: normal appearance, PERRL, no scleral icterus, no conjunctival injection ENT: mucous membranes moist, normal external ear exam Neck: normal inspection, trachea midline, full ROM, no carotid bruits Chest: normal inspection, symmetric Respiratory: Good respiratory effort. Clear to auscultation bilaterally, no wheezing, rales or crackles. Cardiovascular: RRR, normal s1 and s2, No rubs, gallops, or murmors. Abdomen: Bowel sounds present normoactive x-4 quadrants. Abdomen is soft, nondistended. No guarding or rebound. Obese Musculoskeletal: Spontaneously moving all extremities. no edema, no calf tenderness Skin: warm, dry, intact. Neuro: Alert and oriented x4. Sensation light touch intact. Cranial nerves 2- 12 is intact. Not aphasic, gait is steady, rapid hand movements intact, finger- to-nose intact, Psych: Patient's affect is normal - Patient Status Disposition: Home, Self-Care Condition: Good Functional capacity at discharge: independent ambulation Overall status at discharge: patient is back to baseline - Discharge Instructions Follow Up With: Aurora Pelaez [employer]LECT[employer] COMMODITY MANAGER [Primary Care Provider] - - Diet and Activity Activity: resume usual activities as tolerated Diet: advance to your usual diet, diabetic diet
--- NOTE | 2017-11-23 17:34 | Electrocardiograph Report ---
[place] [id number] Test Date: 2017-11-21 Pat Name: Kimberly Vickers Department: EXAM3 Room: 2NE20 Gender: F Fur Storage Clerk: : [id number] Requested By: Erick Tadeo Order Number: [id number] Reading MD: Antonietta Kennedy Measurements Intervals Elizabeth Rate: 75 P: 49 VT: 176 QRS: 45 QRSD: 99 T: 18 QT: 392 QTc: 438 Interpretive Statements Sinus rhythm Abnormal R-wave progression, early transition Electronically Signed On 11-23-2017 17:32:49 EDT by Antonietta Kennedy
== END 2017-11-22 15:46 | disposition home or self-care (01) ==
LOC: EMEROOARM 06:06 → 2NENU 06:06
PROVIDERS: ADMIT Internal Medicine; ATTEND Internal Medicine

== ENCOUNTER 2018-06-23 02:08 | Inpatient (IN) ==
--- NOTE | 2018-06-23 02:21 | Emergency Department Note ---
Disposition Clinical Impression: Suicidal ideation Disposition: Admitted As Inpatient Condition: Good Time of Disposition: 06:51 Psych HPI - General Chief Complaint: ED Psychiatric Symptoms Stated Complaint: SI Time Seen by Provider: 06/23/18 02:15 Nursing Notes Reviewed: Yes Vital Signs Reviewed: Yes - History of Present Illness HPI Narrative: 52-year-old female with known history of depression arrives via squad with reported suicidal ideation, and did not overdose. Squad reports presently 45 minutes prior to patient's arrival, received a call from patient's boyfriend. They report patient had taken approximately 23 mg melatonin, and an unknown amount of her 40 mg Zoloft. But did report recently stressors as patient had recently lost her job. Patient is also known history of CVA last year. No other reported ingestions, drug alcohol use. Patient denies any homicidal ideations or hallucinations. On examination she is alert and does not appear s omnolent, answers questions appropriately. Vitals within normal limits. - Related Data Home Medications Medication Instructions Recorded Confirmed RX: FLUoxetine HCl [Prozac] 40 mg PO DAILY 11/21/17 11/21/17 RX: LevETIRAcetam [Keppra] 750 mg PO BID 11/21/17 11/21/17 RX: Rosuvastatin Calcium [Crestor] 10 mg PO HS 11/21/17 11/21/17 RX: metFORMIN [Glucophage] 500 mg PO DAILY 11/21/17 11/21/17 Allergies Allergy/AdvReac Type Severity Reaction Status Date / Time ampicillin Allergy Rash Verified 05/08/17 11:21 All systems ED: reviewed and negative except as stated. Review of Systems: As Per HPI Constitutional: Denies: fever Eyes: Denies: eye discharge ENT ED: Denies: throat pain Cardiovascular: Denies: chest pain, palpitations Respiratory: Denies: dyspnea Gastrointestinal: Denies: abdominal pain, nausea, vomiting Genitourinary: Denies: dysuria Musculoskeletal: Denies: back pain Integumentary: Denies: rash Psychiatric: Reports: depression, suicidal thoughts Endocrine: Denies: fatigue Hematological/Lymphatic: Denies: easy bleeding Allergic/Immunologic: Denies: facial swelling Past Medical History - Past Medical History Medical history: Reports: diabetes, hypertension Psychiatric history: Reports: anxiety, depression - Social History Smoking Status: Current every day smoker Smokeless Tobacco Status: No Alcohol use: Reports: none Drug use: Reports: none Physical Exam - General Limitations: no limitations General appearance: in no apparent distress - Head Head exam: atraumatic, normocephalic - Eye Eye exam: Present: EOMI - ENT ENT exam: mucous membranes moist - Neck Neck exam: Present: full ROM - Chest Chest inspection: Present: symmetric chest wall rise - Respiratory Respiratory exam: Absent: respiratory distress - Cardiovascular Cardiovascular exam: Present: regular rate - Extremities Exam Extremities exam: Present: full ROM - Back Exam Back exam: Present: full ROM - Neurological Exam Neurological exam: Present: alert - Psychiatric Psychiatric exam: Present: normal affect, depressed - Skin Skin exam: Present: warm, dry, intact, normal color. Absent: rash, cyanosis, diaphoresis Course Course Narrative: 52-year-old female with known history of depression arrives via squad with reported suicidal ideation, and did not overdose. Squad reports presently 45 minutes prior to patient's arrival, received a call from patient's boyfriend. They report patient had taken approximately #20 3mg melatonin, and an unknown amount of Zoloft at an unknown strength. Pt states there were only a few remaining in the bottle and they had been cut in half. Pt states she has been prescribed fluoxeting, but recentlly ran out and stopped bc she lost her insurance. She mentions the zoloft were left over from a long time ago as she had been taking that prior to the fluoxetine. Squad and patient report recent life stressors as patient had recently lost her job. Patient is also known history of CVA last year. No other reported ingestions, drug alcohol use. Patient denies any homicidal ideations or hallucinations. On examination she is alert and does not appear somnolent, answers questions appropriately. Vitals within normal limits. We will plan for EKG, psychiatric clearance workup and we will attempt to medic ally clear for when evaluation. - Reevaluation(s) Reevaluation #1: Pt's EKG unremarkable. On repeat exam, patient remains alert and asymptomatic. Vitals stable. Labwork unremarkable. 1a contacted for consult. Time: 03:44 Vital Signs Temperature 97.7 F 06/23/18 02:17 Pulse Rate 74 06/23/18 02:17 Respiratory Rate 18 06/23/18 02:17 Blood Pressure 130/84 06/23/18 02:17 O2 Sat by Pulse Oximetry 98 06/23/18 02:17 Temperature 97.7 F 06/23/18 02:17 Pulse Rate 74 06/23/18 02:17 Respiratory Rate 18 06/23/18 02:17 Blood Pressure 130/84 06/23/18 02:17 O2 Sat by Pulse Oximetry 98 06/23/18 02:17 Oxygen Delivery Oxygen Delivery Room Air Psych - MDM Narrative Medical decision making narrative: Patient was medically cleared and evaluated by 1A staff who discussed with on- call psychiatrist. Patient was accepted for inpatient admission for further treatment and stabilization. [place] slip completed. Patient was discussed with attending Dr. Redmond also had face time with patient and agreed with workup and disposition. - Lab Data Result diagrams: 06/23/18 02:22 06/23/18 02:22 Lab Results 06/23/18 06/23/18 06/23/18 Range/Units 02:22 02:22 02:38 WBC 6.8 (4.3-11.1) K/mcL RBC 4.34 (3.82-4.97) M/mcL Hgb 13.1 (11.5-15.4) g/dL Hct 40.2 (35.3-44.9) % MCV 92.6 (83.0-100.0) fL MCH 30.2 (28.0-33.3) pg MCHC 32.6 (31.6-35.5) g/dL RDW 12.2 (11.5-14.5) % Plt Count 276 (140-400) K/mcL MPV 10.6 (9.4-12.4) fL Immature Gran % 0.3 (0-4) % Seg Neutrophils % 39.0 % Lymphocytes % 45.9 % Monocytes % 10.0 % Eosinophils % 4.4 % Basophils % 0.4 % Neutrophils # 2.6 (1.6-8.9) K/mcL Lymphocytes # 3.1 (0.6-4.6) K/mcL Monocytes # 0.7 (0.0-1.3) K/mcL Eosinophils # 0.3 (0.0-0.6) K/mcL Basophils # 0.0 (0.0-0.2) K/mcL Sodium 140 (136-145) mEq/L Potassium 3.9 (3.5-5.1) mEq/L Chloride 106 (98-107) mEq/L Carbon Dioxide 27 (23-29) mEq/L BUN 15 (6-20) mg/dL Creatinine 0.68 (0.60-1.20) mg/dL Est GFR ( Amer) > 60 (> 60) Est GFR (Non-Af Amer) > 60 (> 60) BUN/Creatinine Ratio 22 (6-26) Glucose 123 H (70-105) mg/dL Calculated Osmolality 292 (280-300) Calcium 9.3 (8.6-10.3) mg/dL Urine Color Yellow (Yellow) Urine Clarity Clear (Clear) Urine pH 5.5 (5.0-8.0) pH Units Ur Specific [place] 1.024 (1.010-1.025) Urine Protein Negative (Neg-Trace) mg/dL Urine Glucose (UA) Normal (Normal) mg/dL Urine Ketones Negative (Negative) mg/dL Urine Blood Negative (Negative) Urine Nitrite Negative (Negative) Urine Bilirubin Negative (Negative) Urine Urobilinogen Normal (Normal) mg/dL Ur Leukocyte Esterase Negative (Negative) Salicylates < 2.5 L (15.0-30.0) mg/dL Urine Opiates Screen (Wtlgas=610) ng/mL Acetaminophen < 10 L (10-20) mcg/mL Ur Barbiturates Screen (Vhmasz=030) ng/mL Ur Phencyclidine Scrn (Cutoff=25) ng/mL Ur Amphetamines Screen (Izoyrl=2258) ng/mL U Benzodiazepines Scrn (Crikmn=706) ng/mL Urine Cocaine Screen (Cutoff= 300) ng/mL U Marijuana (THC) Screen (Cutoff = 50) ng/mL Ur Drug Screen Interp Ethyl Alcohol < 10 (Less than 10) mg/dL 06/23/18 Range/Units 02:38 WBC (4.3-11.1) K/mcL RBC (3.82-4.97) M/mcL Hgb (11.5-15.4) g/dL Hct (35.3-44.9) % MCV (83.0-100.0) fL MCH (28.0-33.3) pg MCHC (31.6-35.5) g/dL RDW (11.5-14.5) % Plt Count (140-400) K/mcL MPV (9.4-12.4) fL Immature Gran % (0-4) % Seg Neutrophils % % Lymphocytes % % Monocytes % % Eosinophils % % Basophils % % Neutrophils # (1.6-8.9) K/mcL Lymphocytes # (0.6-4.6) K/mcL Monocytes # (0.0-1.3) K/mcL Eosinophils # (0.0-0.6) K/mcL Basophils # (0.0-0.2) K/mcL Sodium (136-145) mEq/L Potassium (3.5-5.1) mEq/L Chloride (98-107) mEq/L Carbon Dioxide (23-29) mEq/L BUN (6-20) mg/dL Creatinine (0.60-1.20) mg/dL Est GFR ( Amer) (> 60) Est GFR (Non-Af Amer) (> 60) BUN/Creatinine Ratio (6-26) Glucose (70-105) mg/dL Calculated Osmolality (280-300) Calcium (8.6-10.3) mg/dL Urine Color (Yellow) Urine Clarity (Clear) Urine pH (5.0-8.0) pH Units Ur Specific [place] (1.010-1.025) Urine Protein (Neg-Trace) mg/dL Urine Glucose (UA) (Normal) mg/dL Urine Ketones (Negative) mg/dL Urine Blood (Negative) Urine Nitrite (Negative) Urine Bilirubin (Negative) Urine Urobilinogen (Normal) mg/dL Ur Leukocyte Esterase (Negative) Salicylates (15.0-30.0) mg/dL Urine Opiates Screen Negative (Etbjkw=328) ng/mL Acetaminophen (10-20) mcg/mL Ur Barbiturates Screen Negative (Rqdegk=454) ng/mL Ur Phencyclidine Scrn Negative (Cutoff=25) ng/mL Ur Amphetamines Screen Negative (Ltpedm=2210) ng/mL U Benzodiazepines Scrn Negative (Utdair=424) ng/mL Urine Cocaine Screen Negative (Cutoff= 300) ng/mL U Marijuana (THC) Screen Negative (Cutoff = 50) ng/mL Ur Drug Screen Interp See Below Ethyl Alcohol (Less than 10) mg/dL Psychiatric Medical Clearance - Medical Clearance Checklist Does the patient have a NEW psychiatric condition?: Yes Any abnormalities indicating possible medical illness?: No Any history of medical issues?: No Medical History: No Social History Section defined Any abnormal vital signs prior to transfer?: No Current Vitals: Last Vital Signs Temp 97.7 F 06/23/18 02:17 Pulse 74 06/23/18 02:17 Resp 18 06/23/18 02:17 BP 130/84 06/23/18 02:17 Pulse Ox 98 06/23/18 02:17 Is the patient intoxicated or cognitively impaired?: No Psychiatric Lab Panel: Drug Levels and Toxicity 06/23/18 06/23/18 02:22 02:38 Urine Opiates Screen Negative Acetaminophen < 10 L Ur Barbiturates Screen Negative Ur Phencyclidine Scrn Negative Ur Amphetamines Screen Negative U Benzodiazepines Scrn Negative Urine Cocaine Screen Negative U Marijuana (THC) Screen Negative Ethyl Alcohol < 10 Any abnormalities on the physical exam?: No Any abnormal labs?: No Abnormal Labs: Abnormal lab results Glucose 123 mg/dL (70-105) H 06/23/18 02:22 Salicylates < 2.5 mg/dL (15.0-30.0) L 06/23/18 02:22 Acetaminophen < 10 mcg/mL (10-20) L 06/23/18 02:22 Does the patient require durable medical equiptment?: No Is the patient ambulatory?: Yes Is the patient a fall risk?: No Has the patient been medically cleared?: Yes Any acute medical condition require Tx prior to transfer?: No Statement of Medical Clearance: I have evaluated the patient, reviewed diagnostic information, and certify that the patient's medical condition is sufficiently stable that transfer to the psychiatric unit does not pose a significant risk of deterioration.
[2018-06-23 02:35] LABS: Basophils % 0.4 %; Eosinophils # 0.3 K/mcL (0.0-0.6); Eosinophils % 4.4 %; Hematocrit 40.2 % (35.3-44.9); Hemoglobin 13.1 g/dL (11.5-15.4); Immature Granulocytes % 0.3 % (0-4); Lymphocytes # 3.1 K/mcL (0.6-4.6); Lymphocytes % 45.9 %; Mean Corpuscular HGB Conc 32.6 g/dL (31.6-35.5); Mean Corpuscular Hemoglobin 30.2 pg (28.0-33.3); Mean Corpuscular Volume 92.6 fL (83.0-100.0); Mean Platelet Volume 10.6 fL (9.4-12.4); Monocytes # 0.7 K/mcL (0.0-1.3); Neutrophils # 2.6 K/mcL (1.6-8.9); Platelet Count 276 K/mcL (140-400); Red Blood Count 4.34 M/mcL (3.82-4.97); Red Cell Distribution Width 12.2 % (11.5-14.5)
[2018-06-23 02:50] LABS: Acetaminophen < 10 mcg/mL (10-20); BUN/Creatinine Ratio 22 (6-26); Blood Urea Nitrogen 15 mg/dL (6-20); Calcium 9.3 mg/dL (8.6-10.3); Carbon Dioxide 27 mEq/L (23-29); Chloride 106 mEq/L (98-107); Ethanol < 10 mg/dL (Less than 10); Glucose 123 mg/dL (70-105); Osmolality,Calculated 292 (280-300); Potassium 3.9 mEq/L (3.5-5.1); Salicylate < 2.5 mg/dL (15.0-30.0); Sodium 140 mEq/L (136-145); eGFR For Non-African Americans > 60 (> 60)
[2018-06-23 02:52] LABS: Bilirubin,Urine Negative (Negative); Blood,Urine Negative (Negative); Clarity,Urine Clear (Clear); Color,Urine Yellow (Yellow); Glucose,Urine (UA) Normal (Normal); Ketones,Urine Negative (Negative); Leukocyte Esterase,Urine Negative (Negative); Nitrite,Urine Negative (Negative); PH,Urine 5.5 pH Units (5.0-8.0); Protein,Urine Negative (Neg-Trace); Specific Gravity,Urine 1.024 (1.010-1.025); Urobilinogen,Urine Normal (Normal)
[2018-06-23 03:01] LABS: Amphetamine Screen,Urine Negative ng/mL (Cutoff=1000); Barbiturate Screen,Urine Negative ng/mL (Cutoff=200); Benzodiazepines Screen,Urine Negative ng/mL (Cutoff=200); Cannabinoid Screen,Urine Negative ng/mL (Cutoff = 50); Cocaine Screen,Urine Negative ng/mL (Cutoff= 300); Opiate Screen,Urine Negative ng/mL (Cutoff=300); Phencyclidine Screen,Urine Negative ng/mL (Cutoff=25)
--- NOTE | 2018-06-23 06:07 | Emergency Department Note ---
Disposition Clinical Impression: Suicidal ideation Disposition: Admitted As Inpatient Condition: Good Referrals: NONE,PCP [Primary Care Provider] - Forms: ED Satisfaction Letter General Adult HPI - General Chief complaint: ED Psychiatric Symptoms Stated complaint: SI Time Seen by Provider: 06/23/18 02:15 Source: patient, EMS Limitations: no limitations Nursing Notes Reviewed: Yes Vital Signs Reviewed: Yes - History of Present Illness Pain Scale: 0 - Related Data Home Medications Medication Instructions Recorded Confirmed FLUoxetine HCl [Prozac] 40 mg PO DAILY 11/21/17 11/21/17 LevETIRAcetam [Keppra] 750 mg PO BID 11/21/17 11/21/17 Rosuvastatin Calcium [Crestor] 10 mg PO HS 11/21/17 11/21/17 metFORMIN [Glucophage] 500 mg PO DAILY 11/21/17 11/21/17 Allergies Allergy/AdvReac Type Severity Reaction Status Date / Time ampicillin Allergy Rash Verified 05/08/17 11:21 Constitutional: Denies: fever Eyes: Denies: eye discharge ENT ED: Denies: throat pain Cardiovascular: Denies: chest pain, palpitations Respiratory: Denies: dyspnea Gastrointestinal: Denies: abdominal pain, nausea, vomiting Genitourinary: Denies: dysuria Musculoskeletal: Denies: back pain Integumentary: Denies: rash Psychiatric: Reports: depression, suicidal thoughts Endocrine: Denies: fatigue Hematological/Lymphatic: Denies: easy bleeding Allergic/Immunologic: Denies: facial swelling Past Medical History - Past Medical History Medical history: Reports: diabetes, hypertension Psychiatric history: Reports: anxiety, depression - Social History Smoking Status: Current every day smoker Smokeless Tobacco Status: No Alcohol use: Reports: none Drug use: Reports: none Physical Exam - General Limitations: no limitations General appearance: in no apparent distress Course Vital Signs Temperature 97.7 F 06/23/18 02:17 Pulse Rate 74 06/23/18 02:17 Respiratory Rate 18 06/23/18 02:17 Blood Pressure 130/84 06/23/18 02:17 O2 Sat by Pulse Oximetry 98 06/23/18 02:17 Temperature 97.7 F 06/23/18 02:17 Pulse Rate 74 06/23/18 02:17 Respiratory Rate 18 06/23/18 02:17 Blood Pressure 130/84 06/23/18 02:17 O2 Sat by Pulse Oximetry 98 06/23/18 02:17 Oxygen Delivery Oxygen Delivery Room Air Medical Decision Making - Lab Data Result diagrams: 06/23/18 02:22 06/23/18 02:22 Lab Results 06/23/18 06/23/18 06/23/18 Range/Units 02:22 02:22 02:38 WBC 6.8 (4.3-11.1) K/mcL RBC 4.34 (3.82-4.97) M/mcL Hgb 13.1 (11.5-15.4) g/dL Hct 40.2 (35.3-44.9) % MCV 92.6 (83.0-100.0) fL MCH 30.2 (28.0-33.3) pg MCHC 32.6 (31.6-35.5) g/dL RDW 12.2 (11.5-14.5) % Plt Count 276 (140-400) K/mcL MPV 10.6 (9.4-12.4) fL Immature Gran % 0.3 (0-4) % Seg Neutrophils % 39.0 % Lymphocytes % 45.9 % Monocytes % 10.0 % Eosinophils % 4.4 % Basophils % 0.4 % Neutrophils # 2.6 (1.6-8.9) K/mcL Lymphocytes # 3.1 (0.6-4.6) K/mcL Monocytes # 0.7 (0.0-1.3) K/mcL Eosinophils # 0.3 (0.0-0.6) K/mcL Basophils # 0.0 (0.0-0.2) K/mcL Sodium 140 (136-145) mEq/L Potassium 3.9 (3.5-5.1) mEq/L Chloride 106 (98-107) mEq/L Carbon Dioxide 27 (23-29) mEq/L BUN 15 (6-20) mg/dL Creatinine 0.68 (0.60-1.20) mg/dL Est GFR ( Amer) > 60 (> 60) Est GFR (Non-Af Amer) > 60 (> 60) BUN/Creatinine Ratio 22 (6-26) Glucose 123 H (70-105) mg/dL Calculated Osmolality 292 (280-300) Calcium 9.3 (8.6-10.3) mg/dL Urine Color Yellow (Yellow) Urine Clarity Clear (Clear) Urine pH 5.5 (5.0-8.0) pH Units Ur Specific [place] 1.024 (1.010-1.025) Urine Protein Negative (Neg-Trace) mg/dL Urine Glucose (UA) Normal (Normal) mg/dL Urine Ketones Negative (Negative) mg/dL Urine Blood Negative (Negative) Urine Nitrite Negative (Negative) Urine Bilirubin Negative (Negative) Urine Urobilinogen Normal (Normal) mg/dL Ur Leukocyte Esterase Negative (Negative) Salicylates < 2.5 L (15.0-30.0) mg/dL Urine Opiates Screen (Gfxcho=156) ng/mL Acetaminophen < 10 L (10-20) mcg/mL Ur Barbiturates Screen (Itbgen=281) ng/mL Ur Phencyclidine Scrn (Cutoff=25) ng/mL Ur Amphetamines Screen (Fyqxmi=2211) ng/mL U Benzodiazepines Scrn (Seyzem=505) ng/mL Urine Cocaine Screen (Cutoff= 300) ng/mL U Marijuana (THC) Screen (Cutoff = 50) ng/mL Ur Drug Screen Interp Ethyl Alcohol < 10 (Less than 10) mg/dL 06/23/18 Range/Units 02:38 WBC (4.3-11.1) K/mcL RBC (3.82-4.97) M/mcL Hgb (11.5-15.4) g/dL Hct (35.3-44.9) % MCV (83.0-100.0) fL MCH (28.0-33.3) pg MCHC (31.6-35.5) g/dL RDW (11.5-14.5) % Plt Count (140-400) K/mcL MPV (9.4-12.4) fL Immature Gran % (0-4) % Seg Neutrophils % % Lymphocytes % % Monocytes % % Eosinophils % % Basophils % % Neutrophils # (1.6-8.9) K/mcL Lymphocytes # (0.6-4.6) K/mcL Monocytes # (0.0-1.3) K/mcL Eosinophils # (0.0-0.6) K/mcL Basophils # (0.0-0.2) K/mcL Sodium (136-145) mEq/L Potassium (3.5-5.1) mEq/L Chloride (98-107) mEq/L Carbon Dioxide (23-29) mEq/L BUN (6-20) mg/dL Creatinine (0.60-1.20) mg/dL Est GFR ( Amer) (> 60) Est GFR (Non-Af Amer) (> 60) BUN/Creatinine Ratio (6-26) Glucose (70-105) mg/dL Calculated Osmolality (280-300) Calcium (8.6-10.3) mg/dL Urine Color (Yellow) Urine Clarity (Clear) Urine pH (5.0-8.0) pH Units Ur Specific [place] (1.010-1.025) Urine Protein (Neg-Trace) mg/dL Urine Glucose (UA) (Normal) mg/dL Urine Ketones (Negative) mg/dL Urine Blood (Negative) Urine Nitrite (Negative) Urine Bilirubin (Negative) Urine Urobilinogen (Normal) mg/dL Ur Leukocyte Esterase (Negative) Salicylates (15.0-30.0) mg/dL Urine Opiates Screen Negative (Ecuqea=899) ng/mL Acetaminophen (10-20) mcg/mL Ur Barbiturates Screen Negative (Rgasel=348) ng/mL Ur Phencyclidine Scrn Negative (Cutoff=25) ng/mL Ur Amphetamines Screen Negative (Gtjcvt=3382) ng/mL U Benzodiazepines Scrn Negative (Nbtrji=974) ng/mL Urine Cocaine Screen Negative (Cutoff= 300) ng/mL U Marijuana (THC) Screen Negative (Cutoff = 50) ng/mL Ur Drug Screen Interp See Below Ethyl Alcohol (Less than 10) mg/dL Attestation Statement - Attestation Attestation: I, Ricky Redmond MD, personally evaluated this patient and discussed their management with the midlevel provicer, PAC[employer]DIP TUBE ASSEMBLER MACHINE. I reviewed the midlevel provider's note and agree with the documented findings, medical decision making, and plan of care. 52-year-old female persisted emergency department by EMS after an intentional overdose of melatonin and Zoloft shortly prior to arrival. Patient admits to suicidal intent. No prior history. She does have a history of depression. No symptoms related to the ingestion. No nausea or vomiting. No abdominal pain. No dizziness or syncope. No chest pain or palpitations or shortness of breath. On examination patient is a well-developed well-nourished well-appearing female in no acute distress. She is alert and oriented 3. There is no cyanosis or diaphoresis. Breath sounds are clear and equal bilaterally. Heart regular rate and rhythm. Abdomen soft and nontender with normal bowel sounds. No gross focal neurological deficits. Labs reviewed. Patient medically cleared for psychiatric evaluation. [address] psychiatry department was consulted and evaluated patient in the emergency department. After evaluation patient is being admitted to the [address] psychiatric unit.
[2018-06-23] MEDS ORDERED: *HR* LORazepam 2 MG/ML VIAL IM PRN (06:38)
[2018-06-23] MEDS ORDERED: MOM Conc 10 ML UD.LIQ PO PRN (06:38)
[2018-06-23] MEDS ORDERED: Haloperidol Lactate 5 MG/ML VIAL IM PRN (06:38)
[2018-06-23] MEDS ORDERED: Ibuprofen 400 MG TABLET PO PRN (06:38)
[2018-06-23] MEDS ORDERED: *HR* LORazepam 1 MG TABLET PO PRN (06:38)
[2018-06-23] MEDS ORDERED: Mag Hydrox/Al Hydrox/Simeth 30 ML UDC PO PRN (06:38)
[2018-06-23] MEDS: *HR* Metformin 500 MG TABLET PO SCH (10:19)
[2018-06-23] MEDS: levETIRAcetam 250 MG TABLET PO SCH ×2 (10:19→21:25)
--- NOTE | 2018-06-23 13:25 | Psychiatry History & Physical ---
Date of Encounter: 06/23/18 Time of Encounter: 10:30 History of Present Illness Patient Stated Chief Complaint: "I took a bunch of pills and tried to kill myself" Medicare Admission Attestation: For traditional Medicare patients the provided hospital inpatient services are reasonable and necessary and in the case of services not specified as inpatient-only under 42 CFR 419.22 (n), that they are appropriately provided as inpatient services in accordance 42 CFR 412.3. For Critical Access Hospital the patient may reasonably be expected to be discharged or transferred to a hospital within 96 hours after admission to the Critical Access Hospital. Admitted From: Emergency Dept Plans for Post Hospital Care: Home History of Present Illness: Ms. Vickers is a 52 year old female with a past psychiatric history of major depressive disorder who was admitted on to the psychiatric unit for a suicide attempt. Reports state that patient took an unknown amount of Zoloft 40 mg and about 23 mg total of melatonin. She reports recent stressors such as losing her job. 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 Reports explains that she also her 1.5 years ago. Reports also expressed that patient has had financial stressors, having to put her house for sale and spending all her savings. She is noticed to psychiatric unit for further stabilization. When speaking with the patient, she reports that she has been intensely depressed for a couple months. She reports a past history of depression for a few instances, reporting when her mother and when she moved to another state for work. She explains that her current depression level is a 6-7/10. She reports stressors such as losing her job, which was her main purpose in life, her divorce, and her financial status. She reports anhedonia as well as decreased energy and concentration, increased sleep, and feelings of unwarranted guilt, hopelessness, and worthlessness. She reports increased anxiety. She denies side effects to her current medications of Prozac. She denies current SI, HI, AH, and VH in a history of AH and VH. She does admit to self-harm. She denies a past suicide attempt. She denies a history of suicidal ideation outside of these recent thoughts. She denies a history of nonlethal self-injurious behavior. She denies access to firearms. She also denies having any protective factors that she knows of, stating, "I do not have anybody anymore." She continues, "I am just taking up space." She denies excessive energy with decreased sleep for a prolonged amount of time characteristic of bipolar disorder. Past Med Surg Social Fam HX - Past Medical History Source: patient Medical history: CVA, diabetes, hypertension - Past Psychiatric History Psychiatric history: Reports: anxiety, depression. Denies: prior suicide attempt, previous psychiatric hospitalization Past psychiatric history details: First contact: At the age of 28 for depression when her mother Past diagnoses: Major depressive disorder Current providers: Denies Past hospitalizations: Denies Suicide history: Denies suicidal ideation outside of recent thoughts. Reports no attempt except for the one that brought her in today. Denies history of nonlethal self-injurious behavior. Family psychiatric history: Yes Family Psychiatric History Details: Reports that her mother had depression in her grandfather had alcohol issues Family History of Suicide: Completed Family Suicide History Details: Reports a cousin completed suicide - Past Surgical History Surgical History: hysterectomy, other ("Brain surgery") - Social History Smoking Status: Former smoker (Reports smoking for a couple years in college and her her divorce, quitting about a year ago from the last relapse) Smokeless Tobacco Status: No Alcohol use: rarely (Reports using a wine cooler "once in a while") Drug use: none Occupational status: unemployed Current living situation: Home Activity Level: Independent ambulation Recent Out of Country Travel Within the Last 8 Weeks: No Additional social history: Patient was born and raised in [place]. She reports her parents were , stating she had a good relationship with them. She reports having 2 living brothers which she also has a good relationship with. She reports that her childhood was "normal," stating that her parents were older when she was born. She explains that they had a fixed income and had little money but she got with she needed. She explains that she currently lives to [place] alone. She states she has been once, once and currently has a boyfriend. She explains that her highest level of education is a masters in radiation physics. 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 She reports her buddy is Confucianist. She denies experience. She denies legal issues. - Family History Father Living Status: Hx Family Cardiac Disorders: Yes Hx Family Respiratory Disorders: No Hx Family Cancer: Yes Hx Family Endocrine Disorder: No Hx Family Neurologic Disorders: Yes Medications & Allergies FLUoxetine HCl [Prozac] 40 mg PO DAILY 11/21/17 [History] LevETIRAcetam [Keppra] 750 mg PO BID 11/21/17 [History] Rosuvastatin Calcium [Crestor] 10 mg PO HS 11/21/17 [History] metFORMIN [Glucophage] 500 mg PO DAILY 11/21/17 [History] Allergy/AdvReac Type Severity Reaction Status Date / Time ampicillin Allergy Rash Verified 05/08/17 11:21 Review of Systems Constitutional: Denies: fever, chills Eyes: Denies: eye pain, eye discharge Ears, Nose, Throat: Denies: ear pain, hearing loss, epistaxis Cardiovascular: Denies: chest pain, palpitations Respiratory: Denies: cough, dyspnea, wheezes Gastrointestinal: Denies: abdominal pain, nausea, vomiting, diarrhea, constipation Genitourinary female: Denies: urgency, dysuria, frequency Musculoskeletal: Denies: joint swelling, joint pain Integumentary: Denies: rash, lesions, pruritus Neurological: Reports: memory loss (Reports that she has occasional memory issues since her CVA with brain surgery). Denies: headache, weakness, numbness Psychiatric: Reports: depression, anxiety, abnormal sleep pattern, anhedonia, memory loss (Reports that she has occasional memory issues since her CVA with brain surgery), difficulty concentrating, hopelessness. Denies: suicidal ideation, change in appetite, homicidal ideation, auditory hallucinations, visual hallucinations Endocrine: Denies: fatigue Hematologic/Lymphatic: Denies: easy bleeding, easy bruising Allergic/Immunologic: Denies: urticaria, itchy eyes Exam - HEENT Head exam IM: Present: atraumatic, normocephalic Eye exam IM: Present: EOMI, normal appearance, PERRL ENT exam IM: Present: normal exam - Neurological Neurological exam: Present: CN II-XII intact - Respiratory Respiratory exam IM: Present: CTAB (Respirations rhythmic; grossly) - GI/Abdominal GI/Abdominal exam IM: Present: no peritoneal signs - Extremities Extremities exam IM: Present: normal inspection - Skin Skin exam IM: Present: dry - Constitutional Vitals: Temp Pulse Resp BP Pulse Ox 97.5 F L 79 18 161/92 93 06/23/18 09:00 06/23/18 09:00 06/23/18 09:00 06/23/18 09:00 06/23/18 09:00 General appearance: age & developmentally appropriate, well-groomed, well- nourished, obese - Musculoskeletal Gait: normal Station: relaxed Strength & Tone: normal for patient (Grossly) - Psychiatric Patient Orientation: Yes Person, Yes Time, Yes Place, Yes Circumstance Level of alertness: Alert, Follows commands Behavior: calm, cooperative Psychomotor activity: Normal Eye Contact: Maintains Eye Contact Mood Description: Depressed Patient description of mood: "Hopeless" Affect description: congruent with mood, constricted Speech Volume: Normal Speech pattern: normal rate, normal tone, fluent, spontaneous, appropriate, aren r, coherent, limited (Mildly decreased prosody) Language & Vocabulary: consistent with education Thought Process: Logical, Linear, Goal Oriented Thought Content: No Suicidal ideation, No Homicidal ideation, No Overt delusions Perceptual Disturbances: No Reacting to internal stimuli, No Auditory perales ucinations, No Visual hallucinations Attention Span Ability: Capable of Focused Attention Memory Description: Grossly Intact Patient Reliability: Reliable Historian Fund of knowledge: Yes abstraction ability, Yes average, Yes aware of current events Intelligence Estimate: Average Judgment: Limited Insight: Partial Results - Drug Levels and Toxicology Drug Levels and Toxicology: Drug Levels and Toxicity 06/23/18 06/23/18 02:22 02:38 Urine Opiates Screen Negative Acetaminophen < 10 L Ur Barbiturates Screen Negative Ur Phencyclidine Scrn Negative Ur Amphetamines Screen Negative U Benzodiazepines Scrn Negative Urine Cocaine Screen Negative U Marijuana (THC) Screen Negative Ethyl Alcohol < 10 - Labs Labs: Laboratory Last Values WBC 6.8 K/mcL (4.3-11.1) 06/23/18 02:22 RBC 4.34 M/mcL (3.82-4.97) 06/23/18 02:22 Hgb 13.1 g/dL (11.5-15.4) 06/23/18 02:22 Hct 40.2 % (35.3-44.9) 06/23/18 02:22 MCV 92.6 fL (83.0-100.0) 06/23/18 02:22 MCH 30.2 pg (28.0-33.3) 06/23/18 02:22 MCHC 32.6 g/dL (31.6-35.5) 06/23/18 02:22 RDW 12.2 % (11.5-14.5) 06/23/18 02:22 Plt Count 276 K/mcL (140-400) 06/23/18 02:22 MPV 10.6 fL (9.4-12.4) 06/23/18 02:22 Immature Gran % 0.3 % (0-4) 06/23/18 02:22 Seg Neutrophils % 39.0 % 06/23/18 02:22 Lymphocytes % 45.9 % 06/23/18 02:22 Monocytes % 10.0 % 06/23/18 02:22 Eosinophils % 4.4 % 06/23/18 02:22 Basophils % 0.4 % 06/23/18 02:22 Neutrophils # 2.6 K/mcL (1.6-8.9) 06/23/18 02:22 Lymphocytes # 3.1 K/mcL (0.6-4.6) 06/23/18 02:22 Monocytes # 0.7 K/mcL (0.0-1.3) 06/23/18 02:22 Eosinophils # 0.3 K/mcL (0.0-0.6) 06/23/18 02:22 Basophils # 0.0 K/mcL (0.0-0.2) 06/23/18 02:22 Sodium 140 mEq/L (136-145) 06/23/18 02:22 Potassium 3.9 mEq/L (3.5-5.1) 06/23/18 02:22 Chloride 106 mEq/L (98-107) 06/23/18 02:22 Carbon Dioxide 27 mEq/L (23-29) 06/23/18 02:22 BUN 15 mg/dL (6-20) 06/23/18 02:22 Creatinine 0.68 mg/dL (0.60-1.20) 06/23/18 02:22 Est GFR ( Amer) > 60 (> 60) 06/23/18 02:22 Est GFR (Non-Af Amer) > 60 (> 60) 06/23/18 02:22 BUN/Creatinine Ratio 22 (6-26) 06/23/18 02:22 Glucose 123 mg/dL (70-105) H 06/23/18 02:22 Calculated Osmolality 292 (280-300) 06/23/18 02:22 Calcium 9.3 mg/dL (8.6-10.3) 06/23/18 02:22 Urine Color Yellow (Yellow) 06/23/18 02:38 Urine Clarity Clear (Clear) 06/23/18 02:38 Urine pH 5.5 pH Units (5.0-8.0) 06/23/18 02:38 Ur Specific [place] 1.024 (1.010-1.025) 06/23/18 02:38 Urine Protein Negative mg/dL (Neg-Trace) 06/23/18 02:38 Urine Glucose (UA) Normal mg/dL (Normal) 06/23/18 02:38 Urine Ketones Negative mg/dL (Negative) 06/23/18 02:38 Urine Blood Negative (Negative) 06/23/18 02:38 Urine Nitrite Negative (Negative) 06/23/18 02:38 Urine Bilirubin Negative (Negative) 06/23/18 02:38 Urine Urobilinogen Normal mg/dL (Normal) 06/23/18 02:38 Ur Leukocyte Esterase Negative (Negative) 06/23/18 02:38 Salicylates < 2.5 mg/dL (15.0-30.0) L 06/23/18 02:22 Urine Opiates Screen Negative ng/mL (Hhsyao=422) 06/23/18 02:38 Acetaminophen < 10 mcg/mL (10-20) L 06/23/18 02:22 Ur Barbiturates Screen Negative ng/mL (Gcanoi=503) 06/23/18 02:38 Ur Phencyclidine Scrn Negative ng/mL (Cutoff=25) 06/23/18 02:38 Ur Amphetamines Screen Negative ng/mL (Effboj=9745) 06/23/18 02:38 U Benzodiazepines Scrn Negative ng/mL (Bwykzx=797) 06/23/18 02:38 Urine Cocaine Screen Negative ng/mL (Cutoff= 300) 06/23/18 02:38 U Marijuana (THC) Screen Negative ng/mL (Cutoff = 50) 06/23/18 02:38 Ur Drug Screen Interp See Below 06/23/18 02:38 Ethyl Alcohol < 10 mg/dL (Less than 10) 06/23/18 02:22 - Impressions None noted this a.m. Assessment and Plan (1) Major depressive disorder, recurrent severe without psychotic features Current visit: Yes Status: Acute Plan: Admit inpatient for safety and stabilization, Close observation, Suicide Precautions per unit protocol, Encourage participation in unit milieu, Group Therapy, Monitor sleep, Monitor appetite Additional Plan: -Patient reports efficacy with Cymbalta in the past. As such, will start Cymbalta 20 mg by mouth daily for mood. Risks, benefits, side effects, and alternatives to treatment were explained the patient, who reports understanding. -Discontinue home dose of fluoxetine -Continue hydroxyzine 25 mg by mouth 3 times a day when necessary for anxiety -Continue trazodone 50 mg by mouth daily at bedtime when necessary for sleep -Continue when necessary medications for agitation -Encourage group participation -Will set patient up with psychiatric and counseling services upon discharge -Patient currently has stable housing -Anticipated discharge once psychiatrically stable Risks, benefits, side effects, alternatives discussed w/pt: Yes Patient agreeable to treatment: Yes Plans for Post Hospital Care: Home Estimated Length of Stay (Days): 3 - Attending Attestation I examined this patient and my medical decision-making was reviewed with the Resident Physician. I agree with the documented findings, disposition and treatment plan as described except to the extent set forth below. Client has multiple stressors not the least of which are financial. No current health insurance or benefits. Will attempt to set her up with Medicaid and financial assistance with medications. Client also has a CPAP machine for LILIANE that she is not currently using due to tearing the mask and having no financial means to replace it. Will look into options as poor oxygenation while she sleeps is likely worsening depression.
[2018-06-23] MEDS: hydrOXYzine pamoate 25 MG CAPSULE PO PRN (21:26)
[2018-06-24] MEDS: levETIRAcetam 250 MG TABLET PO SCH ×2 (09:11→21:09)
[2018-06-24] MEDS: *HR* Metformin 500 MG TABLET PO SCH (09:11)
--- NOTE | 2018-06-24 10:33 | Psychiatry Progress Note ---
Date of Encounter: 06/24/18 Time of Encounter: 10:26 Subjective Interval history: Looks a little better today. More affect. Able to smile more. However, still very depressed. Denying active SI but remains disappointed her overdose attempt did not work out as she had planned. Stayed in bed all day yesterday. She did get up for one group but otherwise declined unit activities. Multiple stressors, most of which will still be active when she leaves. However, she does have support. She was initially fearful her boyfriend would leave her but she spoke with him last night and he remains supportive. Brother and [id number] also supportive and boyfriend planning a trip with client to visit them once she is out of the hospital. Client reporting some interest in doing this which is encouraging. Still needs more time but showing signs of improvement. Tolerating Cymbalta fine and did so in the past as well so will plan to increase dose for tomorrow. Review of Systems Constitutional: Denies: fever, chills, weakness, weight change Eyes: Denies: eye pain, vision change Ears, Nose, Throat: Denies: ear pain, throat pain, dental pain, hearing loss, congestion Cardiovascular: Denies: chest pain, palpitations, dyspnea on exertion Respiratory: Denies: cough, dyspnea, wheezes Gastrointestinal: Denies: abdominal pain, nausea, vomiting, diarrhea, constipation Musculoskeletal: Denies: joint swelling, joint pain Neurological: Denies: headache, weakness, numbness, memory loss Psychiatric: Reports: depression, anxiety, abnormal sleep pattern, anhedonia, memory loss (Reports that she has occasional memory issues since her CVA with brain surgery), difficulty concentrating, hopelessness. Denies: suicidal ideation, change in appetite, homicidal ideation, auditory hallucinations, visual hallucinations Results - Vital Signs Vital Signs: Temp Pulse Resp BP Pulse Ox 97.6 F 80 16 119/81 94 06/24/18 09:00 06/24/18 09:00 06/24/18 09:00 06/24/18 09:00 06/24/18 09:00 Assessment and Plan (1) Major depressive disorder, recurrent severe without psychotic features Current visit: Yes Status: Acute Plan: Continue hospitalization, Close observation, Suicide Precautions per unit protocol, Encourage participation in unit milieu, Group Therapy, Monitor sleep, Monitor appetite Risks, benefits, side effects, alternatives discussed w/pt: Yes Patient agreeable to treatment: Yes Consult Discharge Plan - Plan Referrals: NONE,PCP [Primary Care Provider] - Psychiatry Exam - Constitutional Vitals: Temp Pulse Resp BP Pulse Ox 97.6 F 80 16 119/81 94 06/24/18 09:00 06/24/18 09:00 06/24/18 09:00 06/24/18 09:00 06/24/18 09:00 General appearance: age & developmentally appropriate, well-groomed, well- nourished - Musculoskeletal Gait: normal Station: relaxed Strength & Tone: normal for patient - Psychiatric Patient Orientation: Yes Person, Yes Time, Yes Place Level of alertness: Alert Behavior: calm, cooperative Psychomotor activity: Normal Eye Contact: Maintains Eye Contact Mood Description: Depressed Affect description: congruent with mood Speech Volume: Normal Speech pattern: normal rate, normal rhythm, normal tone, fluent, spontaneous Language & Vocabulary: consistent with education Thought Process: Linear Thought Content: Yes Suicidal ideation, No Homicidal ideation, No Overt delusions Perceptual Disturbances: No Auditory hallucinations, No Visual hallucinations Attention Span Ability: Capable of Focused Attention Memory Description: Grossly Intact Patient Reliability: Reliable Historian Fund of knowledge: Yes abstraction ability, Yes aware of current events Intelligence Estimate: Average Judgment: Limited Insight: Partial
[2018-06-24] MEDS: traZODone 50 MG TABLET PO PRN (21:09)
[2018-06-24] MEDS: hydrOXYzine pamoate 25 MG CAPSULE PO PRN (21:09)
--- NOTE | 2018-06-24 23:09 | Electrocardiograph Report ---
[address] [address] Test Date: 2018-06-23 Pat Name: Kimberly Vickers Department: EXAM3 Room: 1A24 Gender: F [employer] Supervisor: : [id number] Requested By: Ton Muñoz Order Number: [id number] Reading MD: Ady Maradiaga Measurements Intervals [place] Rate: 73 P: 47 SC: 166 QRS: 47 QRSD: 97 T: 39 QT: 412 QTc: 454 Interpretive Statements Sinus rhythm Abnormal R-wave progression, early transition Electronically Signed On 06-24-2018 23:08:02 EDT by Ady Maradiaga
[2018-06-25] MEDS: levETIRAcetam 250 MG TABLET PO SCH ×2 (09:16→21:07)
[2018-06-25] MEDS: *HR* Metformin 500 MG TABLET PO SCH (09:16)
--- NOTE | 2018-06-25 11:17 | Psychiatry Progress Note ---
Date of Encounter: 06/25/18 Time of Encounter: 09:15 Subjective Interval history: Ms. Vickers is a very pleasant 52 year old female with depression. She was laying in bed during this interview. States that she has been feeling groggy and felt really hot last night. Denies problems with appetite and denies side effects. Denies suicidal ideation, homicidal ideation, and auditory/visual hallucinations. Rates her current depression as 4/10 on a 0-10 scale with 0 being none and 10 being the worst. Rates anxiety as 3-4/10 on the same scale. Review of Systems Psychiatric: Reports: depression, anxiety, anhedonia, memory loss (Reports that she has occasional memory issues since her CVA with brain surgery), difficulty concentrating, hopelessness. Denies: suicidal ideation, change in appetite, homicidal ideation, auditory hallucinations, visual hallucinations Results - Vital Signs Vital Signs: Temp Pulse Resp BP Pulse Ox 97.2 F L 91 16 98/69 94 06/25/18 09:00 06/25/18 09:00 06/25/18 09:00 06/25/18 09:00 06/25/18 09:00 Assessment and Plan (1) Depression Current visit: No Status: Chronic Plan: Continue hospitalization, Close observation, Suicide Precautions per unit protocol, Encourage participation in unit milieu, Group Therapy, Monitor sleep, Monitor appetite Additional Plan: 1. Continue Cymbalta. 2. Continue all other medications as prescribed, as well. 3. Encourage group participation. 4. Will continue to monitor. 5. Anticipate discharge when more psychiatrically stable and affect has improved more. Risks, benefits, side effects, alternatives discussed w/pt: Yes Patient agreeable to treatment: Yes Qualifiers: Depression Type: unspecified Qualified Code(s): F32.9 - Major depressive disorder, single episode, unspecified Consult Discharge Plan - Plan Referrals: NONE,PCP [Primary Care Provider] - - Attending Attestation I examined this patient and my medical decision-making was reviewed with the Resident Physician. I agree with the documented findings, disposition and treatment plan as described except to the extent set forth below. Client is doing better. Out of room more. More affect. States she wants to attend groups today. No longer actively suicidal but still ambivalent attempt did not work out. Improved but needs a little more time. Psychiatry Exam - Constitutional Vitals: Temp Pulse Resp BP Pulse Ox 97.2 F L 91 16 98/69 94 06/25/18 09:00 06/25/18 09:00 06/25/18 09:00 06/25/18 09:00 06/25/18 09:00 General appearance: age & developmentally appropriate, well-groomed, obese - Musculoskeletal Gait: normal Station: relaxed Strength & Tone: normal for patient - Psychiatric Level of alertness: Alert, Follows commands Behavior: calm, cooperative Psychomotor activity: Normal Eye Contact: Maintains Eye Contact Mood Description: Euthymic/stable Patient description of mood: "okay" Affect description: congruent with mood, blunted Speech Volume: Normal Speech pattern: normal rate, normal rhythm, normal tone, clear, coherent Language & Vocabulary: consistent with education Thought Process: Logical, Linear, Goal Oriented Thought Content: No Suicidal ideation, No Homicidal ideation Perceptual Disturbances: No Reacting to internal stimuli Attention Span Ability: Capable of Focused Attention Memory Description: Grossly Intact Patient Reliability: Reliable Historian Fund of knowledge: Yes average Intelligence Estimate: Average Judgment: Fair Insight: Partial
[2018-06-25] MEDS: traZODone 50 MG TABLET PO PRN (21:10)
[2018-06-25] MEDS: hydrOXYzine pamoate 25 MG CAPSULE PO PRN (21:10)
[2018-06-26] MEDS: *HR* Metformin 500 MG TABLET PO SCH (09:33)
[2018-06-26] MEDS: levETIRAcetam 250 MG TABLET PO SCH ×2 (09:34→20:46)
--- NOTE | 2018-06-26 15:15 | Psychiatry Progress Note ---
Date of Encounter: 06/26/18 Time of Encounter: 15:00 Subjective Interval history: ID: the patient is a 52-year-old white female Chief complaint: I had a stroke in May 2017. I had a seizure in October 2017. I had stress in January 2018 when I try to go back to work and I had another seizure. I have not used my CPAP in several months. There was a part that I needed for the mask. But I lost my insurance in January and I did not go back to get it. History of present illness. The patient continues to have major depression sadness and anhedonia memory loss problems with attention concentration and energy. She also reports a Row was sedating and efforts to switch to another less sedating anticonvulsant were unsuccessful due to cost. The patient is isolating some but does attend some groups. The patient reports the recent suicide attempt and reports that some family members are no supportive. She is somewhat optimistic about the possibility of healthcare coverage. The patient and I discussed sleep apnea. She has not used her mask for period of time she was diagnosed in 2016. For much of 2018 she has not used her CPAP. She is aware of the side effects the needs for this. However his CPAP stabilizers were provided by her insurance. She reports that the part is $50 that she needs to replace in order uses. The patient and I also reviewed the MRI from October 2017. The patient talked about her seizure disorder and its relationship to ongoing stress. The patient and I also talked about Cymbalta she was on it previously for fibromyalgia and feels that it may have helped mood is well today she was able to tolerate 60 mg. Review of Systems Neurological: Reports: memory loss Psychiatric: Reports: depression, anxiety, abnormal sleep pattern, anhedonia, memory loss (Reports that she has occasional memory issues since her CVA with brain surgery), difficulty concentrating, hopelessness. Denies: suicidal ideation, change in appetite, homicidal ideation, auditory hallucinations, visual hallucinations Results - Vital Signs Vital Signs: Temp Pulse Resp BP Pulse Ox 97.0 F L 82 16 103/83 98 06/26/18 09:00 06/26/18 09:00 06/26/18 09:00 06/26/18 09:00 06/26/18 09:00 Assessment and Plan (1) Sleep apnea with hypersomnolence Current visit: Yes Status: Chronic Plan: Continue hospitalization, Monitor sleep Risks, benefits, side effects, alternatives discussed w/pt: Yes Patient agreeable to treatment: Yes (2) Suicidal ideation Current visit: Yes Status: Acute Plan: Continue hospitalization, Suicide Precautions per unit protocol, Encourage participation in unit milieu, Monitor appetite, Secure weapons, Family/Supportive other meeting Risks, benefits, side effects, alternatives discussed w/pt: Yes Patient agreeable to treatment: Yes (3) Major depressive disorder, recurrent severe without psychotic features Current visit: Yes Status: Acute Plan: Continue hospitalization, Close observation, Suicide Precautions per unit protocol, Encourage participation in unit milieu, Group Therapy, Monitor appetite Risks, benefits, side effects, alternatives discussed w/pt: Yes Patient agreeable to treatment: Yes Consult Discharge Plan - Plan Referrals: NONE,PCP [Primary Care Provider] - Psychiatry Exam - Constitutional Vitals: Temp Pulse Resp BP Pulse Ox 97.0 F L 82 16 103/83 98 06/26/18 09:00 06/26/18 09:00 06/26/18 09:00 06/26/18 09:00 06/26/18 09:00 General appearance: age & developmentally appropriate, well-groomed, well- nourished - Musculoskeletal Gait: normal, brisk, slow Station: stiff Strength & Tone: normal for patient - Psychiatric Patient Orientation: Yes Person, Yes Time, Yes Place, Yes Circumstance Level of alertness: Sedated Behavior: cooperative, nervous, withdrawn Psychomotor activity: Slowed Eye Contact: Maintains Eye Contact Mood Description: Depressed Affect description: dysphoric Speech Volume: Soft/Quiet Speech pattern: normal rate Language & Vocabulary: consistent with education Thought Process: Intact Thought Content: Yes Suicidal ideation Perceptual Disturbances: Yes Reacting to internal stimuli Attention Span Ability: Capable of Focused Attention Memory Description: Grossly Intact Patient Reliability: Reliable Historian Fund of knowledge: Yes above average Intelligence Estimate: Above [place] Judgment: Limited Insight: Minimal
[2018-06-26] MEDS: traZODone 50 MG TABLET PO PRN (20:48)
[2018-06-26] MEDS: hydrOXYzine pamoate 25 MG CAPSULE PO PRN (20:48)
[2018-06-27] MEDS: levETIRAcetam 250 MG TABLET PO SCH ×2 (09:06→20:46)
[2018-06-27] MEDS: *HR* Metformin 500 MG TABLET PO SCH (09:06)
--- NOTE | 2018-06-27 10:21 | Psychiatry Progress Note ---
Date of Encounter: 06/27/18 Time of Encounter: 10:15 Subjective Interval history: Client remains depressed but no longer actively suicidal. Denying SI, intent, or plan today. Approaching discharge readiness. Presumptive Medicaid has been set up. Once client has active Medicaid she should be able to replace her sleep mask. Getting treatment for her sleep apnea will help with depression as well. Client states her boyfriend still intends to take her to visit her brother and [id number] after discharge so she should have family support around her. Cymbalta seems to be helping. Client shrugs her shoulders when asked if medication is benefitting her but agrees she would likely be worse off without it. Still has room to go up on dose as an outpatient. Stays to herself during the day. Client indicated she wanted to attend groups but staff report she is not doing so. Comes out of room more at night. When asked about this today client states she is still nervous around people. Still has a lot of anxiety and embarrassment about her overdose. Encouraged to be out of room and more active in groups today and client agreeable. Likely discharge early this week. Review of Systems Constitutional: Denies: fever, chills, weakness, weight change Eyes: Denies: eye pain, vision change Ears, Nose, Throat: Denies: ear pain, throat pain, dental pain, hearing loss, congestion Cardiovascular: Denies: chest pain, palpitations, dyspnea on exertion Respiratory: Denies: cough, dyspnea, wheezes Gastrointestinal: Denies: abdominal pain, nausea, vomiting, diarrhea, constipation Musculoskeletal: Denies: joint swelling, joint pain Neurological: Denies: headache, weakness, numbness, memory loss Psychiatric: Reports: depression, anxiety, abnormal sleep pattern, anhedonia, memory loss (Reports that she has occasional memory issues since her CVA with brain surgery), difficulty concentrating, hopelessness. Denies: suicidal ideation, change in appetite, homicidal ideation, auditory hallucinations, visual hallucinations Results - Vital Signs Vital Signs: Temp Pulse Resp BP Pulse Ox 97.3 F L 83 16 95/68 98 06/27/18 09:00 06/27/18 09:00 06/27/18 09:00 06/27/18 09:00 06/27/18 09:00 Assessment and Plan (1) Major depressive disorder, recurrent severe without psychotic features Current visit: Yes Status: Acute Plan: Continue hospitalization, Close observation, Suicide Precautions per unit protocol, Encourage participation in unit milieu, Group Therapy, Monitor sleep, Monitor appetite Risks, benefits, side effects, alternatives discussed w/pt: Yes Patient agreeable to treatment: Yes Consult Discharge Plan - Plan Referrals: NONE,PCP [Primary Care Provider] - Psychiatry Exam - Constitutional Vitals: Temp Pulse Resp BP Pulse Ox 97.3 F L 83 16 95/68 98 06/27/18 09:00 06/27/18 09:00 06/27/18 09:00 06/27/18 09:00 06/27/18 09:00 General appearance: age & developmentally appropriate, well-groomed, well- nourished - Musculoskeletal Gait: normal Station: relaxed Strength & Tone: normal for patient - Psychiatric Patient Orientation: Yes Person, Yes Time, Yes Place Level of alertness: Alert Behavior: calm, cooperative Psychomotor activity: Normal Eye Contact: Maintains Eye Contact Mood Description: Depressed Affect description: congruent with mood Speech Volume: Normal Speech pattern: normal rate, normal rhythm, normal tone, fluent, spontaneous Language & Vocabulary: consistent with education Thought Process: Linear Thought Content: No Suicidal ideation, No Homicidal ideation, No Overt delusions Perceptual Disturbances: No Auditory hallucinations, No Visual hallucinations Attention Span Ability: Capable of Focused Attention Memory Description: Grossly Intact Patient Reliability: Reliable Historian Fund of knowledge: Yes abstraction ability, Yes aware of current events Intelligence Estimate: Average Judgment: Fair Insight: Partial
[2018-06-27] MEDS: hydrOXYzine pamoate 25 MG CAPSULE PO PRN (20:46)
[2018-06-27] MEDS: traZODone 50 MG TABLET PO PRN (20:46)
[2018-06-28] MEDS: *HR* Metformin 500 MG TABLET PO SCH (09:10)
[2018-06-28] MEDS: levETIRAcetam 250 MG TABLET PO SCH ×2 (09:11→21:41)
--- NOTE | 2018-06-28 10:52 | Psychiatry Progress Note ---
Date of Encounter: 06/28/18 Time of Encounter: 10:50 Subjective Interval history: Patient is doing well. She is tolerating the medication. Her mood is stable. Thinking is clear. She is future oriented toward wanting to go on a road trip to visit her brother with her boyfriend. She is okay with the fact that she has filed for disability benefits. No suicidal ideations. Review of Systems Psychiatric: Reports: depression (Improving), memory loss (Chronic related to CVA). Denies: suicidal ideation, change in appetite, homicidal ideation, auditory hallucinations, visual hallucinations Results - Vital Signs Vital Signs: Temp Pulse Resp BP Pulse Ox 97.8 F 99 16 104/73 95 06/27/18 19:57 06/27/18 19:57 06/27/18 19:57 06/27/18 19:57 06/27/18 19:57 Assessment and Plan (1) Depression Current visit: No Status: Chronic Plan: Continue hospitalization, Close observation, Suicide Precautions per unit protocol, Encourage participation in unit milieu, Group Therapy, Monitor sleep, Monitor appetite Additional Plan: Continue current medications. Encourage group attendance. Therapists working on linkage for aftercare. Risks, benefits, side effects, alternatives discussed w/pt: Yes Patient agreeable to treatment: Yes Qualifiers: Depression Type: major depressive disorder Major depression recurrence: recurrent Active/Remission status: currently active Major depression episode severity: severe Psychotic features: without psychotic features Qualified Code(s): F33.2 - Major depressive disorder, recurrent severe without psychotic features Consult Discharge Plan - Plan Referrals: [facility] [Outside] Psychiatry Exam - Constitutional Vitals: Temp Pulse Resp BP Pulse Ox 97.8 F 99 16 104/73 95 06/27/18 19:57 06/27/18 19:57 06/27/18 19:57 06/27/18 19:57 06/27/18 19:57 General appearance: age & developmentally appropriate, well-groomed, well- nourished - Musculoskeletal Gait: normal Station: relaxed Strength & Tone: normal for patient - Psychiatric Patient Orientation: Yes Person, Yes Time, Yes Place Level of alertness: Alert Behavior: calm, cooperative Psychomotor activity: Normal Eye Contact: Maintains Eye Contact Mood Description: Euthymic/stable Patient description of mood: "Better" Affect description: congruent with mood, full range Speech Volume: Normal Speech pattern: normal rate, normal rhythm, normal tone, fluent, spontaneous Language & Vocabulary: consistent with education Thought Process: Linear, Goal Oriented Thought Content: No Suicidal ideation, No Homicidal ideation, No Overt delusions Perceptual Disturbances: No Auditory hallucinations, No Visual hallucinations Attention Span Ability: Capable of Focused Attention Memory Description: Grossly Intact Patient Reliability: Reliable Historian Fund of knowledge: Yes abstraction ability, Yes aware of current events Intelligence Estimate: Average Judgment: Good Insight: Full
[2018-06-28] MEDS: traZODone 50 MG TABLET PO PRN (21:42)
[2018-06-28] MEDS: hydrOXYzine pamoate 25 MG CAPSULE PO PRN (21:42)
[2018-06-29] MEDS: levETIRAcetam 250 MG TABLET PO SCH (09:05)
[2018-06-29] MEDS: *HR* Metformin 500 MG TABLET PO SCH (09:06)
[2018-06-29 09:11] VITALS: BP 120/82
--- NOTE | 2018-06-29 09:18 | Discharge Summary ---
Date of Encounter: 06/29/18 Time of Encounter: 09:16 Diagnosis - Discharge Diagnosis (1) Depression Status: Chronic Qualifiers: Depression Type: major depressive disorder Major depression recurrence: recurrent Active/Remission status: currently active Major depression episode severity: severe Psychotic features: without psychotic features Qualified Code(s): F33.2 - Major depressive disorder, recurrent severe without psychotic features Medications - Discharge Medications Prescriptions: DULoxetine [Cymbalta] 60 mg PO DAILY #15 capsule. hydrOXYzine pamoate [HydrOXYzine Pamoate] 25 mg PO TID PRN #45 capsule PRN Reason: Anxiety traZODone [TraZODone] 50 mg PO HS PRN #15 tablet PRN Reason: Insomnia LevETIRAcetam [Keppra] 750 mg PO BID 11/21/17 [History] Rosuvastatin Calcium [Crestor] 10 mg PO HS 11/21/17 [History] metFORMIN [Glucophage] 500 mg PO DAILY 11/21/17 [History] DULoxetine [Cymbalta] 60 mg PO DAILY #15 capsule. 06/29/18 [Rx] hydrOXYzine pamoate [HydrOXYzine Pamoate] 25 mg PO TID PRN #45 capsule 06/29/18 [Rx] traZODone [TraZODone] 50 mg PO HS PRN #15 tablet 06/29/18 [Rx] Allergy/AdvReac Type Severity Reaction Status Date / Time ampicillin Allergy Rash Verified 05/08/17 11:21 Results Procedures and tests throughout hospitalization: Completed Lab Orders Category Date Time Status Acetaminophen Stat Lab 06/23/18 02:22 Completed Basic Metabolic Panel Stat Lab 06/23/18 02:22 Completed Complete Blood Count [HEME] Stat Lab 06/23/18 02:22 Completed Drug Screen, Urine [UCHEM] Stat Lab 06/23/18 02:38 Completed Ethanol Stat Lab 06/23/18 02:22 Completed Salicylate Stat Lab 06/23/18 02:22 Completed Urinalysis reflex Microscopic [URIN] Stat Lab 06/23/18 02:38 Completed Provider Date of admission: 06/23/18 06:07 Primary care physician: PCP NONE Discharging clinician: Shruti Gómez Psychiatry Exam - Constitutional Vitals: Temp Pulse Resp BP Pulse Ox 97.4 F L 93 18 120/82 97 06/29/18 09:00 06/29/18 09:00 06/29/18 09:00 06/29/18 09:00 06/29/18 09:00 General appearance: age & developmentally appropriate, well-groomed, well-no urished - Musculoskeletal Gait: normal Station: relaxed Strength & Tone: normal for patient - Psychiatric Patient Orientation: Yes Person, Yes Time, Yes Place Level of alertness: Alert Behavior: calm, cooperative Psychomotor activity: Normal Eye Contact: Maintains Eye Contact Mood Description: Euthymic/stable Patient description of mood: "Good" Affect description: congruent with mood, full range Speech Volume: Normal Speech pattern: normal rate, normal rhythm, normal tone, fluent, spontaneous Language & Vocabulary: consistent with education Thought Process: Linear, Goal Oriented Thought Content: No Suicidal ideation, No Homicidal ideation, No Overt delusions Perceptual Disturbances: No Auditory hallucinations, No Visual hallucinations Attention Span Ability: Capable of Focused Attention Memory Description: Grossly Intact Patient Reliability: Reliable Historian Fund of knowledge: Yes abstraction ability, Yes aware of current events Intelligence Estimate: Average Judgment: Good Insight: Full Hospital Course Hospital course: Ms. Vickers is a 52 year old female who was admitted after overdosing on Zoloft. 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 She was started on Cymbalta for her depression which she tolerated well.Patient was educated of diagnosis and the risk-benefit side effects of this alternative treatment options and was monitored for responsiveness and side effects. Mood anxiety sleep and appetite interest improved as did future orientation. Self-harm thoughts subsided, thinking cleared, psychosis resolved, and mood stabilized. Patient was able to attend both individual and group therapy sessions as well as meet with the psychiatrist daily and urged to discuss any medication or treatment issues or other concerns. The patient was educated primarily by verbal means about their diagnosis and manifestations in their life. The option for treatment including group and individual therapy programming was offered to the patient in addition to the use of medications with all their potential risks, benefits, and side effects as well as the risks of not taking medication and non-adhereance were discussed with the patient at length. The patient was given the opportunity to ask questions and was noted to participate in the treatment in the planning process. The patient felt ready and eager to be discharged from the inpatient psychiatric unit to continue on with treatment as an outpatient. The patient agreed that is they were safe for this disposition. The patient was considered to be able to participate in informed consent and decision making with respect to medical, legal, and financial issues of the time of discharge. At the time of discharge the patient adamantly denied any concerns for lethality including suicidal or homicidal thoughts ideations or plans and was future oriented toward ongoing mental health care, medical follow-up and sobriety. Time spent discussing smoking cessation with patient: 3 to 10 minutes Does patient wish to continue nicotine replacement upon disc: No - Time Spent with Patient Total time spent providing and/or coordinating discharge services: 25 Less than 30 minutes Specific discharge activities: Interval history reviewed. Available labs reviewed . Psychotherapy provided. Patient had an opportunity to ask questions and address concerns. Patient was in agreement with the treatment plan. The risks benefits and side effects of medications were discussed with the patient, including alternatives and treatment. The patient was educated on the abstaining from any alcohol or illicit substances, following up with all scheduled appointments, and taking all medications as prescribed. Assessment and Plan - Patient/Caregiver Discharge Instructions Activity: resume usual activities as tolerated Diet: regular diet Additional Instructions: Continue current medications. Follow up with outpatient mental health. Encourage continued therapy in a group or individual setting. The patient was discharged to home. - Follow up Plan Follow up with: Venkat Valdovinos [facility] [Outside] Functional capacity at discharge: independent ambulation Overall status at discharge: Stable Disposition: Home, Self-Care Quality - Multiple Antipsychotics Patient discharged on 2 or more antipsychotic medications: No Procedures - Procedures Procedures: Medication Management, Crisis Stabilization, Supportive Therapy, Group Therapy, Psychoeducational Therapy
== END 2018-06-29 15:25 | disposition home or self-care (01) | DRG 812 ==
LOC: EMEROOARM 02:08 → 1ANU 06:07 → SUATTDRO 06:07 → 1ANU 06:42
PROVIDERS: ADMIT Psychiatry & Neurology Psychiatry; ATTEND Psychiatry & Neurology Psychiatry